=== PATIENT | male | born 1960 | race Caucasian/White ===

== ENCOUNTER 2016-12-03 09:06 | Inpatient (IN) | payer OTHER ==
--- NOTE | 2016-12-03 09:21 | PDOC ---
History of Present Illness <Yeimy Bateman - Last Filed: 12/03/16 09:21> <Amarjit Darnell - Last Filed: 12/03/16 11:14> - General History Source: Patient Exam Limitations: No Limitations - History of Present Illness Initial Comments: 12/03/16 09:48 Patient is a 56 year old male with a significant past medical history of GERD who presents to the ED with SOB, chest pressure, abdominal pain and jaundice. Patient reports chest pressure is localized to the right side of the chest and he feels like someone is sitting on my chest. Patient reports mild cough. Patient also notes that he has been experiencing RUQ pain and had a CT with contrast done in [place]. The CT showed large R pleural effusion, liver lesions, pancreas normal and gallbladder contracted but normal. Patient also had blood work done that showed elevated LFTs. He reports yellow-brown urine. He states that he had weight loss of 20 lbs over 5 weeks. He reports decreased PO. He denies fever, chills, nausea, vomiting, diarrhea or constipation. He denies any chest pain or leg swelling. PSH - Inguinal hernia repair 16 years ago SH - Smoker. Denies alcohol or drug use. Recent travel - [place] 2 weeks ago <Renee Anaya - Last Filed: 12/03/16 12:33> - General Chief Complaint: Chest Pain Stated Complaint: CHEST PAIN Time Seen by Provider: 12/03/16 09:21 Past History - Past Medical History GI Disorders: Yes (ACID REFLUX) - Surgical History Abdominal Surgery: Yes (HERNIA) - Psycho/Social/Smoking Cessation Hx Suicidal Ideation: No Smoking History: Current every day smoker Number of Cigarettes Smoked Daily: 6 Information on smoking cessation initiated: No Hx Alcohol Use: No Drug/Substance Use Hx: No <Yeimy Bateman - Last Filed: 12/03/16 09:21> <Amarjit Darnell - Last Filed: 12/03/16 11:14> <Renee Anaya - Last Filed: 12/03/16 12:33> - Past Medical History Allergies/Adverse Reactions: Allergies Allergy/AdvReac Type Severity Reaction Status Date / Time No Known Allergies Allergy Verified 12/03/16 09:16 Home Medications: Ambulatory Orders Bromezapam 6 mg PO PRN 12/03/16 Famotidine [Pepcid] 20 mg PO DAILY 12/03/16 Review of Systems - Review of Systems Constitutional: Yes: Chills, Fever, Unintentional Wgt. Loss HEENTM: No: Recent change in vision Respiratory: Yes: Cough, Shortness of Breath Cardiac (ROS): Yes: Chest Pain, Lightheadedness. No: Edema, Syncope ABD/GI: Yes: Nausea, Poor Appetite. No: Diarrhea All Other Systems: Reviewed and Negative <Amarjit Darnell - Last Filed: 12/03/16 11:14> - Review of Systems Able to Perform ROS?: Yes <Renee Anaya - Last Filed: 12/03/16 12:33> *Physical Exam - Vital Signs Last Vital Signs Temp Pulse Resp BP Pulse Ox 98.4 F 110 H 20 132/80 95 12/03/16 09:07 12/03/16 09:07 12/03/16 09:07 12/03/16 09:07 12/03/16 09:07 <Yeimy Bateman - Last Filed: 12/03/16 09:21> - Vital Signs Last Vital Signs Temp Pulse Resp BP Pulse Ox 98.4 F 110 H 20 132/80 95 12/03/16 09:07 12/03/16 09:07 12/03/16 09:07 12/03/16 09:07 12/03/16 09:07 <Amarjit Darnell - Last Filed: 12/03/16 11:14> - Vital Signs Last Vital Signs Temp Pulse Resp BP Pulse Ox 98.4 F 110 H 20 132/80 95 12/03/16 09:07 12/03/16 09:07 12/03/16 09:07 12/03/16 09:07 12/03/16 09:07 - Physical Exam Comments: 12/03/16 09:49 GENERAL: The patient is awake, alert, and fully oriented, in no acute distress. HEAD: Normal with no signs of trauma. EYES: Pupils equal, round and reactive to light, extraocular movements intact, sclera anicteric, conjunctiva clear with no pallor. ENT: + dry mucous membrance. Ears normal, nares patent, oropharynx clear without exudates. NECK: Normal range of motion, supple without lymphadenopathy, JVD, or masses. LUNGS: +Decreased breath sounds to the mid lung on the right. Clear to auscultation bilaterally. No wheeze/crackles. HEART: +Regular slight tachycardia, normal S1 and S2 without murmur or rub. ABDOMEN: +Hepatomegaly, +tenderness over epigastric and RUQ region.Soft/ nondistended. BS wnl. No guarding or rebound. No palpable masses. EXTREMITIES: + 1+ edema on the LLE, +trace edema on the RLE. Normal range of motion. No clubbing or cyanosis. No cords, erythema, or tenderness. NEUROLOGICAL: Cranial nerves II through XII grossly intact. Normal speech, normal gait. PSYCH: Normal mood, normal affect. SKIN: +Jaundice. Warm, Dry, normal turgor, no rashes or lesions noted. 12/03/16 12:32 <Renee Anaya - Last Filed: 12/03/16 12:33> Heart Score/ECG Review #1 ECG reviewed & interpreted by me at: 09:12 General ECG Interpretation: Sinus Rhythm, Normal Rate (104), Normal Intervals ( qtc 462), No acute ischemic changes (sub-mm JOHNNY isolated to V1, ST depression V5 -6) <Amarjit Darnell - Last Filed: 12/03/16 11:14> ED Treatment Course - LABORATORY CBC & Chemistry Diagram: 12/03/16 09:20 12/03/16 09:20 - ADDITIONAL ORDERS Additional order review: Laboratory Results 12/03/16 12/03/16 12/03/16 09:20 09:20 09:20 Sodium 129 L Potassium 3.8 Chloride 94 L Carbon Dioxide 22 Anion Gap 13 BUN 19 H Creatinine 0.6 L Creat Clearance w eGFR > 60 Random Glucose 117 H Lactic Acid 1.516 Calcium 8.9 Total Bilirubin 11.6 H AST 199 H ALT 206 H Alkaline Phosphatase 383 H Troponin I < 0.02 Total Protein 6.0 L Albumin 2.5 L Lipase 1438 H - RADIOLOGY Radiology Studies Ordered: Category Date Time Status ABDOMEN & PELVIS CT WITH CONTR [CT] Stat CT Scan 12/03/16 09:[address] WITH CONTRAST [CT] Stat CT Scan 12/03/16 09:41 Ordered - Medications Given in the ED: ED Medications Discontinued Medications Generic Name Dose Route Start Last Admin Trade Name Freq PRN Reason Stop Dose Admin Ondansetron HCl 4 mg 12/03/16 09:40 12/03/16 10:04 Zofran Injection IVPB 12/03/16 09:41 Not Given ONCE ONE <Amarjit Darnell - Last Filed: 12/03/16 11:14> - LABORATORY CBC & Chemistry Diagram: 12/03/16 09:20 12/03/16 09:20 - RADIOLOGY Radiology Studies Ordered: 12/03/16 11:24 EXAM: CT/CHEST CT WITH CONTRAST CT/ABDOMEN PELVIS CT WITH CONTR Clinical history: Right pleural effusion. Comparison: None. Contiguous transaxial images were obtained from the lung apices to the bases with windows obtained for mediastinal and lung parenchymal detail. IV contrast was utilized. Sagittal and coronal reconstructions were performed. Mediastinum: Suspicious moderately enlarged retrocaval pretracheal node measuring 2.9 cm in AP dimension x 2.0 cm in width. There are smaller nodes on the left adjacent to the aortic arch. There are enlarged right hilar nodes, including one measuring 1.2 cm. There is a traction loculated right effusion with pleural thickening. The fluid measures 9 Hounsfield units. Lungs: There are posterior right apical blebs and diffuse emphysematous changes. The left lung is clear. The right lung shows a spiculated lobulated mass probably in the anterior segment of the right middle lobe abutting the fissure. It measures 2.3 cm in width x 1.2 cm in AP dimension. There are pleural changes and small opacities in the right middle lobe. These probably are chronic as there are calcifications seen there. Bone: There is no specific evidence of skeletal metastatic disease, but if such is to be excluded, correlation with a radionuclide scan would be necessary. Impression: Spiculated anterior segment right upper lobe mass abutting the fissure with mediastinal and right hilar adenopathy. Loculated right effusion with pleural thickening. Clinical history: Abdominal pain. Rule out diverticulitis. Comparison: None. Contiguous transaxial images were obtained from the diaphragmatic domes and pubic symphysis after the administration of oral and IV contrast. There is mild ascites. Bone: Negative. Liver: Is moderate hepatomegaly with lipomatous infiltration. At least one hypodensity is seen in the right lobe on image #61 of series #6 which can be evaluated with an ultrasound. It measures 11 mm. Several other faint lucent lesions are seen within the liver. Gallbladder: Negative. Biliary tree: Negative. Spleen: Mild splenomegaly. Pancreas: Pancreatic head is enlarged and measures 5.1 x 4.5 cm. Please correlate with additional imaging. No noris adenopathy is identified. Adrenals: Negative. Kidneys: There are small bilateral renal cysts. Pelvis: Negative. Bowel: Retention of stool. Aorta: There is an infrarenal abdominal aortic aneurysm with mild clot measuring a maximum of 3.3 x 3.2 cm on image #96. The proximal iliac artery aneurysms, the right measuring 1 4 cm and the left 2.2 cm. Other: Negative. Impression: Mild ascites. Moderate hepatosplenomegaly with inhomogeneous hepatic enhancement and multiple hypodense lesions. Correlate with ultrasound. Enlarged pancreatic head. Correlate with ultrasound and MRI. Abdominal aortic aneurysm and proximal iliac artery aneurysms with thrombus but without seen. Small bilateral renal cysts. Reported By: Phillip Montenegro MD 12/03/16 <Renee Anaya - Last Filed: 12/03/16 12:33> Medical Decision Making - Medical Decision Making 12/03/16 10:18 A portion of this note was documented by scribe services under my direction. I have reviewed the details of the note, within reason, and agree with the documentation with the following case summary and management plan written by me. 56-year-old male with no significant past medical history other than GERD, long smoking history presents with 4-5 weeks complaints of generalized weakness, weight loss, shortness of breath, decreased appetite, intermittent chest pain. Patient had preliminary workup while in [place] with CAT scan notable for large right-sided pleural effusion and unspecified liver lesions concerning for metastatic disease. Presents to the ED for further evaluation with persistent generalized weakness. Vitals as noted, mild tachycardia. Jaundiced Decreased breath sounds on the right Right upper quadrant tenderness 56-year-old male with presentation most concerning for neoplastic process, in the setting of travel and possible neoplasm, some concern for superimposed PE. labs, ua ekg ct chest/abdomen/pelvis to evaluate effusion and jaundice IV fluid rehydration admission 12/03/16 11:14 No leukocytosis or anemia, positive thrombocytopenia. Hyponatremic, hypochloremic with normal creatinine. LFTs elevated, lipase elevated concerning for obstructive jaundice. CT of the chest/abdomen/pelvis is pending. Receiving IV fluid hydration. Accepted for inpatient med/surge by Dr. Rhodes <Amarjit Darnell - Last Filed: 12/03/16 11:14> *DC/Admit/Observation/Transfer <Yeimy Bateman - Last Filed: 12/03/16 09:21> - Discharge Dispostion Admit: Yes <Amarjit Darnell - Last Filed: 12/03/16 11:14> - Attestations Scribe Attestion: 12/03/16 09:53 Documentation prepared by YANELY Espinoza, acting as medical language specialist for Amarjit Darnell MD. <Renee Anaya - Last Filed: 12/03/16 12:33> Diagnosis at time of Disposition: Jaundice, Pleural effusion on right, Elevated LFTs
[2016-12-03] MEDS ORDERED: ONDANSETRON 4 MG/2 ML VIAL IVPB ONE (09:40)
[2016-12-03] MEDS ORDERED: SODIUM CHLORIDE 1,000 ML IV ONE (09:40)
[2016-12-03] MEDS ORDERED: ONDANSETRON 4 MG/2 ML VIAL ONE (09:50)
[2016-12-03 10:05] LABS: MCH 29.5 pg (25.7-33.7); MCHC 34.4 g/dl (32.0-35.9); MEAN CELL VOLUME 85.8 fl (80-96); MEAN PLT VOLUME 7.3 fl (7.5-11.1); WHITE BLOOD COUNT 9.4 K/mm3 (4.0-10.0)
[2016-12-03 10:07] LABS: ALBUMIN 2.5 g/dl (3.4-5.0); ANION GAP 13 (8-16); CALCIUM 8.9 mg/dL (8.5-10.1); CO2 22 mmol/L (21-32); GLUCOSE,RANDOM 117 mg/dL (74-106)
[2016-12-03 10:10] LABS: ALK PHOS 383 U/L (45-117); BILIRUBIN,TOTAL 11.6 mg/dL (0.2-1.0); CREATININE 0.6 mg/dL (0.7-1.3); SGPT/ALT 206 U/L (12-78)
[2016-12-03 10:11] LABS: TROPONIN I < 0.02 ng/ml (0.00-0.05)
[2016-12-03 10:14] LABS: SGOT/AST 199 U/L (15-37)
[2016-12-03 10:16] LABS: BILIRUBIN,DIRECT 8.2 mg/dL (0.0-0.2); MAGNESIUM 2.1 mg/dL (1.8-2.4)
[2016-12-03 10:18] LABS: PLATELET COUNT 36 K/MM3 (134-434)
[2016-12-03 10:39] LABS: INR 1.3 (0.82-1.09); PROTHROMBIN TIME (PATIENT) 14.4 SEC (9.98-11.88)
[2016-12-03 12:02] LABS: PH,URINE 7.5 (5.0-8.0); URINE APPEARANCE CLEAR; URINE BILIRUBIN 3+ (NEGATIVE); URINE BLOOD NEGATIVE (NEGATIVE); URINE COLOR DK. ORANGE; URINE GLUCOSE (UA) TRACE (NEGATIVE); URINE KETONE NEGATIVE (NEGATIVE); URINE LEUK ESTERASE NEGATIVE (NEGATIVE); URINE NITRITE NEGATIVE (NEGATIVE); URINE UROBILINOGEN 1.0 E.U/dl E.U./dl (0.2-1.0)
[2016-12-03 12:03] LABS: URINE PROTEIN 1+ (NEGATIVE)
[2016-12-03 12:07] LABS: URINE RBC 3 /hpf (0-3)
[2016-12-03 12:19] VITALS: BMI 28.4
[2016-12-03 12:41] LABS: PLATELET ESTIMATE MARKEDLY DECREASED (NORMAL)
--- NOTE | 2016-12-03 13:27 | EKG ---
Test Reason : Blood Pressure : / mmHG Vent. Rate : 104 BPM Atrial Rate : 104 BPM P-R Int : 128 ms QRS Dur : 094 ms QT Int : 352 ms P-R-T Axes : 050 053 043 degrees QTc Int : 462 ms SINUS TACHYCARDIA NONSPECIFIC ST ABNORMALITY ABNORMAL ECG NO PREVIOUS ECGS AVAILABLE Confirmed by MARICARMEN ANDERSON, LENA ([id number]) on 12/03/2016 1:27:40 PM Referred By: Confirmed By:LENA HERNADEZ MD
--- NOTE | 2016-12-03 15:39 | CONSULT ---
Consult - text type - Consultation Consultation Note: Patient is a 56 year old male with a significant past medical history of GERD who presents to the ED with SOB, chest pressure, abdominal pain and jaundice. Patient reports chest pressure is localized to the right side of the chest . Patient reports mild cough. Patient also notes that he has been experiencing RUQ pain and had a CT with contrast done in [place]. The CT showed large R pleural effusion, liver lesions, pancreas normal and gallbladder contracted but normal. Patient also had blood work done that showed elevated LFTs. He states that he had weight loss of 20 lbs over 5 weeks. He denies fever, chills, nausea, vomiting, diarrhea or constipation. He denies any chest pain or leg swelling. PSH - Inguinal hernia repair 16 years ago SH - Smoker. Denies alcohol or drug use. - Past Medical History GI Disorders: Yes (ACID REFLUX) - Surgical History Abdominal Surgery: Yes (HERNIA) - Psycho/Social/Smoking Cessation Hx Smoking History: Current every day smoker - Past Medical History Allergies/Adverse Reactions: Allergies Allergy/AdvReac Type Severity Reaction Status Date / Time No Known Allergies Allergy Verified 12/03/16 09:16 Home Medications: Bromezapam 6 mg PO PRN 12/03/16 Famotidine [Pepcid] 20 mg PO DAILY 12/03/16 Family h/o mother had hodgkins disease Last Vital Signs Temp Pulse Resp BP Pulse Ox 98.7 F 102 H 18 127/82 96 12/03/16 13:06 12/03/16 13:06 12/03/16 13:06 12/03/16 13:06 12/03/16 13:06 GENERAL: The patient is awake, alert, and fully oriented, in no acute distress. LUNGS: +Decreased breath sounds on the right. No wheeze/crackles. HEART: +Regular slight tachycardia, normal S1 and S2 without murmur or rub. ABDOMEN: +Hepatomegaly, +tenderness over epigastric and RUQ region.Soft/ nondistended. BS wnl. No guarding or rebound. No palpable masses. EXTREMITIES: + 1+ edema on the LLE, +trace edema on the RLE. Normal range of motion. Abnormal Lab Results 12/03/16 12/03/16 12/03/16 09:20 09:20 09:20 Plt Count MPV Nucleated RBCs INR 1.30 H Sodium Chloride BUN Creatinine Random Glucose Total Bilirubin Direct Bilirubin 8.2 H AST ALT Alkaline Phosphatase Creatine Kinase 320 H Total Protein Albumin Lipase Urine Protein 1+ H Urine Glucose (UA) Trace H Urine Bilirubin 3+ H 12/03/16 12/03/16 09:20 09:20 Plt Count 36 L* MPV 7.3 L Nucleated RBCs 7 H INR Sodium 129 L Chloride 94 L BUN 19 H Creatinine 0.6 L Random Glucose 117 H Total Bilirubin 11.6 H Direct Bilirubin AST 199 H ALT 206 H Alkaline Phosphatase 383 H Creatine Kinase Total Protein 6.0 L Albumin 2.5 L Lipase 1438 H Urine Protein Urine Glucose (UA) Urine Bilirubin Meds reviewed A/P 56-year-old male with no significant past medical history other than GERD, long smoking history presents with 4-5 weeks complaints of generalized weakness, weight loss, shortness of breath, decreased appetite, intermittent chest pain. CAT scans -- RML lung mass, loculated rt. pleural effusion, hilar/mediastinal adenopathy, retrocrural and paraaortic adenopathy, liver lesions, splenomegaly, prominent pancreatic head, clot in infrarenal aneurysm Tbili 11, platelets [id number] will check cultures/tumor markers GI consult coagulopathy/thrombocytopenia---due o liver disease? check cultures trial of vit. K may need FFP/platelets prior to biopsy morphine prn for pain
[2016-12-03] MEDS ORDERED: morphine CARPU-JECT 2 MG/1 ML DISP.SYRIN IVPUSH PRN (16:47)
--- NOTE | 2016-12-03 17:33 | CON.GI ---
Consult Consult Specialty:: GI Referred by:: Dr. Rhodes Reason for Consultation:: Abnormal liver chemistries - History of Present Illness Chief Complaint: Abnormal liver chemistries History of Present Illness: 56M admitted [facility] for eval of abnormal liver chemistires. He was living in [place] when he noticed a significant weight loss of 15 pounds over the last 1 -2 months and noted a yellow discoloration in his eyes and skin about a month ago. he described being evaluated there, having blood work that revealed abnormal liver chemistries and had a CT scan revealing lesions in his liver. [place] came [place] the [place] to visit his son and sought further evaluation. CT scan revealed a lung lesion, lesions in his liver, enlarged spleen. Abdominal; US revealed multiple liver lesions, the largest 1.2 cm along with ? sludge or GB mass. The US failed to reveal biliary tract dilatation. He says that he was tested for hepatitis in [place] and it was negative. - History Source History Provided By: Patient Limitations to Obtaining History: No Limitations - Past Medical History Additional Medical History: Denies - Past Surgical History Past Surgical History: Yes: Hernia Repair (inguinal) - Alcohol/Substance Use Hx Alcohol Use: No History of Substance Use: reports: None - Smoking History Smoking history: Current every day smoker Aproximately how many cigarettes per day: 6 - Social History Usual Living Arrangement: With Spouse ADL: Independent Place of : Other ([place]) History of Recent Travel: Yes (Arrived from [place] recently) Home Medications - Allergies Allergies/Adverse Reactions: Allergies Allergy/AdvReac Type Severity Reaction Status Date / Time No Known Allergies Allergy Verified 12/03/16 09:16 - Home Medications Home Medications: Ambulatory Orders Bromezapam 6 mg PO PRN 12/03/16 Famotidine [Pepcid] 20 mg PO DAILY 12/03/16 Family Disease History - Family Disease History Other Family History: Mother had hodgkin's lymphoma Review of Systems - Review of Systems Constitutional: reports: Unintentional Wgt. Loss. denies: Fever Cardiovascular: denies: Chest Pain Respiratory: denies: SOB Gastrointestinal: reports: Abdominal Pain. denies: Constipation, Diarrhea, Melena, Rectal Bleeding, Vomiting Physical Exam-GI Vital Signs: Vital Signs Temperature 98.7 F 12/03/16 13:06 Pulse Rate 102 H 12/03/16 13:06 Respiratory Rate 18 12/03/16 13:06 Blood Pressure 127/82 12/03/16 13:06 O2 Sat by Pulse Oximetry (%) 95 12/03/16 13:20 Constitutional: Yes: Calm Eyes: Yes: Sclera Icterus Cardiovascular: Yes: Regular Rate and Rhythm. No: Murmur Respiratory: Yes: CTA Bilaterally Gastrointestinal Inspection: No: Distention, Scars ...Auscultate: Yes: Normoactive Bowel Sounds ...Palpate: Yes: Hepatomegaly Edema: Yes (trace LE edema b/l) Neurological: Yes: Alert, Oriented Labs: INR, PTT INR 1.30 (0.82-1.09) H 12/03/16 09:20 CBC, BMP 12/03/16 09:20 12/03/16 09:20 Hepatic Panel Total Bilirubin 11.6 mg/dL (0.2-1.0) H 12/03/16 09:20 Direct Bilirubin 8.2 mg/dL (0.0-0.2) H 12/03/16 09:20 AST 199 U/L (15-37) H 12/03/16 09:20 ALT 206 U/L (12-78) H 12/03/16 09:20 Alkaline Phosphatase 383 U/L (45-117) H 12/03/16 09:20 Albumin 2.5 g/dl (3.4-5.0) L 12/03/16 09:20 Imaging - Results Cat Scan: Report Reviewed, Image Reviewed Ultrasound: Report Reviewed Problem List - Problems (1) Jaundice Assessment/Plan: Liver decompensation: suspect to be secondary to metastatic liver disease / tumor burden as opposed to biliary obstruction and unclear if her had preexisting liver disease prior to this Oncology is following. Tumor markers ordered and liver biopsy being contemplated I ordered Triple Phase MRI of the abdomen with MRCP to further evaluate liver and biliary tract Ordered Hepatitis A/B/C serologies Lactulose 20g daily Family present: the patient and his family are aware that he likely has cancer and of likely poor outcome Code(s): R17 - UNSPECIFIED JAUNDICE
[2016-12-03] MEDS: PHYTONADIONE 10 MG/1 ML AMP SQ SCH (17:57)
--- NOTE | 2016-12-03 19:06 | HP ---
Admitting History and Physical - Primary Care Physician PCP: Savita Rhodes - Admission Chief Complaint: jaundice and shortness of breath History of Present Illness: Pt is a 56 year old male with pmhx of GERD who presents to the ER with abnormal liver function tests and Jaundice. He has had about 15 pound weight loss over the last few months. He has notices a yellow discoloration of his urine and skin. He also complained of change in taste. He has had increasing shortness of breath. He also has abdominal pain that is localized mostly to the epigastric area and to the RUQ. He went to see a physician in [place] which is when he had the bloodwork and a ct scan. He is aware of the lesions in the liver that appear metastatic. He is also aware of the abnormal liver function tests. He does have a smoking history and family history of cancer. He currently does have shortness of breath that is improved with oxygen. He does have a right pleural effusion and was told that it may need to be drained. He has never had a colonoscopy. History Source: Patient, Medical Record - Past Medical History Gastrointestinal: Yes: GERD - Past Surgical History Past Surgical History: Yes: Hernia Repair (inguinal) - Smoking History Smoking history: Current every day smoker Aproximately how many cigarettes per day: 6 - Alcohol/Substance Use Hx Alcohol Use: No History of Substance Use: reports: None - Social History ADL: Independent History of Recent Travel: Yes (Arrived from [place] recently) Home Medications - Allergies Allergies/Adverse Reactions: Allergies Allergy/AdvReac Type Severity Reaction Status Date / Time No Known Allergies Allergy Verified 12/03/16 09:16 - Home Medications Home Medications: Ambulatory Orders Bromezapam 6 mg PO PRN 12/03/16 Famotidine [Pepcid] 20 mg PO DAILY 12/03/16 Family Disease History - Family Disease History Other Family History: Mother had hodgkin's lymphoma Review of Systems - Review of Systems Constitutional: reports: Loss of Appetite, Malaise, Unintentional Wgt. Loss, Weakness. denies: Night Sweats Eyes: reports: Other (scleral icterus) HENT: reports: No Symptoms Neck: reports: No Symptoms Cardiovascular: reports: Shortness of Breath Respiratory: reports: Cough, Exercise Intolerance, SOB, SOB on Exertion Gastrointestinal: reports: Abdominal Pain Genitourinary: reports: No Symptoms Musculoskeletal: reports: No Symptoms Integumentary: reports: Other (jaundice) Neurological: reports: No Symptoms Endocrine: reports: No Symptoms Hematology/Lymphatic: reports: No Symptoms Psychiatric: reports: No Symptoms Physical Examination Vital Signs: Vital Signs Temperature 98.7 F 12/03/16 13:06 Pulse Rate 102 H 12/03/16 13:06 Respiratory Rate 18 12/03/16 13:06 Blood Pressure 127/82 12/03/16 13:06 O2 Sat by Pulse Oximetry (%) 95 12/03/16 13:20 Constitutional: Yes: Calm Eyes: Yes: Sclera Icterus HENT: Yes: Atraumatic Neck: Yes: Supple Cardiovascular: Yes: Tachycardia, S1, S2 Respiratory: Yes: On Nasal O2, Other (decreased right lung sounds) Gastrointestinal: Yes: Tenderness, Tenderness, Epigastrium Renal/: Yes: WNL Musculoskeletal: Yes: WNL Edema: Yes Edema: LLE: Trace, RLE: Trace Integumentary: Yes: Jaundice Neurological: Yes: Oriented Psychiatric: Yes: Oriented Labs: Laboratory Tests 12/03/16 12/03/16 12/03/16 09:00 09:20 09:20 WBC Hgb Plt Count INR 1.30 H Sodium Potassium Chloride Carbon Dioxide Anion Gap BUN Creatinine Creat Clearance w eGFR Random Glucose Total Bilirubin Direct Bilirubin AST ALT Alkaline Phosphatase Creatine Kinase Creatine Kinase Index Total Protein Lipase Urine Color Dk. orange Urine Appearance Clear Urine pH 7.5 Ur Specific [place] <= 1.005 Urine Protein 1+ H Urine Ketones Negative Urine Blood Negative Urine Nitrite Negative Urine Bilirubin 3+ H Urine Urobilinogen 1.0 e.u/dl Ur Leukocyte Esterase Negative Urine RBC 3 Urine WBC None Hepatitis C Antibody Pending 12/03/16 12/03/16 12/03/16 09:20 09:20 09:20 WBC 9.4 Hgb 12.8 Plt Count 36 L* INR Sodium 129 L Potassium 3.8 Chloride 94 L Carbon Dioxide 22 Anion Gap 13 BUN 19 H Creatinine 0.6 L Creat Clearance w eGFR > 60 Random Glucose 117 H Total Bilirubin 11.6 H Direct Bilirubin 8.2 H AST 199 H ALT 206 H Alkaline Phosphatase 383 H Creatine Kinase 320 H Creatine Kinase Index 0.5 Total Protein 6.0 L Lipase 1438 H Urine Color Urine Appearance Urine pH Ur Specific [place] Urine Protein Urine Ketones Urine Blood Urine Nitrite Urine Bilirubin Urine Urobilinogen Ur Leukocyte Esterase Urine RBC Urine WBC Hepatitis C Antibody Imaging - Results Cat Scan: Report Reviewed (right upper lobe lung mass, right lung pleural effusion. hepatosplenomegaly. enlarged pancreatic head) Problem List - Problems (1) Elevated LFTs Code(s): R94.5 - ABNORMAL RESULTS OF LIVER FUNCTION STUDIES (2) Jaundice Code(s): R17 - UNSPECIFIED JAUNDICE (3) Pleural effusion on right Code(s): J90 - PLEURAL EFFUSION, NOT ELSEWHERE CLASSIFIED (4) GERD (gastroesophageal reflux disease) Code(s): K21.9 - GASTRO-ESOPHAGEAL REFLUX DISEASE WITHOUT ESOPHAGITIS (5) Ascites Code(s): R18.8 - OTHER ASCITES (6) Hyponatremia Code(s): E87.1 - HYPO-OSMOLALITY AND HYPONATREMIA (7) Thrombocytopenia Code(s): D69.6 - THROMBOCYTOPENIA, UNSPECIFIED (8) Smoker Code(s): F17.200 - NICOTINE DEPENDENCE, UNSPECIFIED, UNCOMPLICATED Assessment/Plan Current Medications Generic Name Dose Route Start Last Admin Trade Name Freq PRN Reason Stop Dose Admin Morphine Sulfate 0.5 mg 12/03/16 16:47 12/03/16 17:21 Morphine Injection - IVPUSH 0.5 mg Q6H PRN Administration PAIN Phytonadione 5 mg 12/03/16 17:15 12/03/16 17:57 Aqua Mephyton Injection - SQ 12/05/16 10:01 5 mg DAILY NIK Administration Impression 1. right lung mass 2. liver lesions 3. hepatosplenomegaly 4. transaminitis 5. jaundice 6. GERD 7. smoking history 8. abdominal aortic aneurysm 9. thrombocytopenia 10. hyponatremia 11. unintentional weight loss 12. mild ascites Plan - admit to hospital - pain control - oxygen via [place], monitor pulse ox - oncology evaluation for lesions - GI evaluation - will check hep panel - hold fluids for now - repeat labs in am - will send urine lytes - pt likely has a malignancy, will proceed with workup to find the primary lesion - case discussed in detail with family and with patient - ultrasound reviewed, MRI to be done Dr Rhodes
[2016-12-03] MEDS ORDERED: LACTULOSE 20 GM/30 ML UDC (FOR ORAL USE ONLY) PO PRN (19:19)
[2016-12-03] MEDS ORDERED: morphine CARPU-JECT 2 MG/1 ML DISP.SYRIN IVPUSH ONE (19:30)
[2016-12-03] MEDS ORDERED: PT OWN MED DRAWER 7, Y5N ONE (21:54)
[2016-12-04] MEDS: morphine CARPU-JECT 2 MG/1 ML DISP.SYRIN IVPUSH PRN ×6 (00:24→23:09)
[2016-12-04 07:58] LABS: MCHC 35.1 g/dl (32.0-35.9); MEAN CELL VOLUME 85.5 fl (80-96); MEAN PLT VOLUME 7.7 fl (7.5-11.1); RDW 15.8 % (11.9-15.9); WHITE BLOOD COUNT 9.7 K/mm3 (4.0-10.0)
[2016-12-04 08:24] LABS: INR 1.3 (0.82-1.09); PROTHROMBIN TIME (PATIENT) 14.4 SEC (9.98-11.88)
[2016-12-04 08:26] LABS: PLATELET COUNT 28 K/MM3 (134-434)
[2016-12-04 08:27] LABS: ACTIVATED PTT 29.1 SECONDS (26.9-34.4)
[2016-12-04 08:31] LABS: ALBUMIN 2.3 g/dl (3.4-5.0); ANION GAP 11 (8-16); BILIRUBIN,TOTAL 13.3 mg/dL (0.2-1.0); CALCIUM 8.6 mg/dL (8.5-10.1); CO2 27 mmol/L (21-32); CREATININE 0.6 mg/dL (0.7-1.3); GLUCOSE,RANDOM 117 mg/dL (74-106); SGPT/ALT 204 U/L (12-78); TOT PROT 5.6 g/dl (6.4-8.2)
[2016-12-04 08:41] LABS: ALK PHOS 379 U/L (45-117); THYROID STIMULATING HORMONE 0.83 uIU/ml (0.358-3.74)
[2016-12-04 08:48] LABS: SGOT/AST 219 U/L (15-37)
[2016-12-04 08:58] LABS: MAGNESIUM 2.2 mg/dL (1.8-2.4)
[2016-12-04 10:13] LABS: MCH 29.8 pg (25.7-33.7); MCHC 35.1 g/dl (32.0-35.9); PLATELET COUNT 63 K/MM3 (134-434); RDW 15.1 % (11.9-15.9); WHITE BLOOD COUNT 9.9 K/mm3 (4.0-10.0)
[2016-12-04 10:41] LABS: METAMYELOCYTE 1 % (0-2)
[2016-12-04 10:48] LABS: INR 1.28 (0.82-1.09); PROTHROMBIN TIME (PATIENT) 14.2 SEC (9.98-11.88)
[2016-12-04] MEDS: PHYTONADIONE 10 MG/1 ML AMP SQ SCH (10:57)
--- NOTE | 2016-12-04 12:28 | CON.PULM ---
Consult Consult Specialty:: PULM/CCM Referred by:: MISSY Reason for Consultation:: Abnormal CT chest - History of Present Illness Chief Complaint: SOB and CP History of Present Illness: 56 M, with listed medical illness. Reports a 2 to 3 week illness that started in [place]. Patient had scans performed in [place] that revealed liver lesions. Imaging here reveals a RML spiculated mass abutting the fissure with associated mediastinal lymh nodes and a loculated right effusion. Patient denies sick contacts or recent febrile illness. Denies hemoptysis. (+) smoker - History Source History Provided By: Patient Limitations to Obtaining History: Poor Historian - Past Medical History Gastrointestinal: Yes: GERD Additional Medical History: Denies - Past Surgical History Past Surgical History: Yes: Hernia Repair (inguinal) - Alcohol/Substance Use Hx Alcohol Use: No History of Substance Use: reports: None - Smoking History Smoking history: Current every day smoker Aproximately how many cigarettes per day: 6 - Social History Usual Living Arrangement: With Spouse ADL: Independent History of Recent Travel: Yes (Arrived from [place] recently) Home Medications - Allergies Allergies/Adverse Reactions: Allergies Allergy/AdvReac Type Severity Reaction Status Date / Time No Known Allergies Allergy Verified 12/03/16 09:16 - Home Medications Home Medications: Ambulatory Orders Bromezapam 6 mg PO PRN 12/03/16 Famotidine [Pepcid] 20 mg PO DAILY 12/03/16 Family Disease History - Family Disease History Other Family History: Mother had hodgkin's lymphoma Review of Systems - Review of Systems Constitutional: reports: Lethargy, Loss of Appetite, Malaise, Unintentional Wgt. Loss, Weakness. denies: Chills, Fever, Night Sweats Eyes: reports: Other (yellow discoloration) HENT: reports: No Symptoms Neck: reports: No Symptoms Cardiovascular: reports: Chest Pain, Edema, Shortness of Breath. denies: Palpitations Respiratory: reports: Cough, SOB, SOB on Exertion. denies: Hemoptysis, Wheezing Gastrointestinal: reports: Bloating. denies: Melena, Rectal Bleeding, Vomiting Blood Genitourinary: reports: No Symptoms Breasts: reports: No Symptoms Reported Musculoskeletal: reports: Back Pain Integumentary: reports: Change in Color Neurological: reports: No Symptoms Endocrine: reports: No Symptoms Hematology/Lymphatic: denies: Easily Bruised, Excessive Bleeding Psychiatric: reports: No Symptoms Physical Exam Vital Sings: Vital Signs Temperature 97.9 F 12/04/16 09:21 Pulse Rate 101 H 12/04/16 09:21 Respiratory Rate 18 12/04/16 09:21 Blood Pressure 125/81 12/04/16 09:21 O2 Sat by Pulse Oximetry (%) 95 12/03/16 22:00 Constitutional: Yes: No Distress, Pallor, Other (Icterus) Eyes: Yes: Sclera Icterus HENT: Yes: Atraumatic, Normocephalic Neck: Yes: Supple, Trachea Midline Cardiovascular: Yes: Regular Rate and Rhythm Respiratory: Yes: Cough, Diminished, Dullness, On Nasal O2, Rhonchi, Tachypnea. No: Accessory Muscle Use, Stridor, Wheezes ...Inspection: Yes: WNL ...Clubbing: No Gastrointestinal: Yes: Normal Bowel Sounds, Soft Renal/: Yes: WNL Musculoskeletal: Yes: WNL Extremities: Yes: WNL Edema: Yes Peripheral Pulses WNL: Yes Integumentary: Yes: Jaundice Neurological: Yes: Alert, Oriented Psychiatric: Yes: Alert, Oriented Labs: CBC, BMP 12/04/16 10:05 12/04/16 06:30 Imaging - Results Cat Scan: Report Reviewed, Image Reviewed Problem List - Problems (1) Ascites Code(s): R18.8 - OTHER ASCITES (2) Elevated LFTs Code(s): R94.5 - ABNORMAL RESULTS OF LIVER FUNCTION STUDIES (3) GERD (gastroesophageal reflux disease) Code(s): K21.9 - GASTRO-ESOPHAGEAL REFLUX DISEASE WITHOUT ESOPHAGITIS (4) Hyponatremia Code(s): E87.1 - HYPO-OSMOLALITY AND HYPONATREMIA (5) Jaundice Code(s): R17 - UNSPECIFIED JAUNDICE (6) Pleural effusion on right Code(s): J90 - PLEURAL EFFUSION, NOT ELSEWHERE CLASSIFIED (7) Smoker Code(s): F17.200 - NICOTINE DEPENDENCE, UNSPECIFIED, UNCOMPLICATED (8) Thrombocytopenia Code(s): D69.6 - THROMBOCYTOPENIA, UNSPECIFIED (9) Mass of right lung Code(s): R91.8 - OTHER NONSPECIFIC ABNORMAL FINDING OF LUNG FIELD Assessment/Plan Heme evaluation noted for transfusional support prior to IR guided biopsy/ pleural drainage O2 as needed Follow cultures Do not suspect infection-> Monitor off ABX for now Lactulose No smoking Unfortunately appears like metastatic CA Will follow Thank you. Dr Gates
[2016-12-04 13:06] LABS: MCH 29.3 pg (25.7-33.7); MCHC 34.3 g/dl (32.0-35.9); MEAN CELL VOLUME 85.4 fl (80-96); PLATELET COUNT 88 K/MM3 (134-434); RDW 15.2 % (11.9-15.9); WHITE BLOOD COUNT 11.1 K/mm3 (4.0-10.0)
[2016-12-04] MEDS ORDERED: morphine CARPU-JECT 2 MG/1 ML DISP.SYRIN IVPUSH ONE (14:00)
--- NOTE | 2016-12-04 14:11 | PN ---
Progress Note (short form) - Note Progress Note: Patient seen and examined c/o pain restless had biopsy done today Last Vital Signs Temp Pulse Resp BP Pulse Ox 97.9 F 101 H 18 125/81 95 12/04/16 09:21 12/04/16 09:21 12/04/16 09:21 12/04/16 09:21 12/03/16 22:00 Jaundiced Cor: RSR, No murmurs, No gallops Lungs: Clear to P&A Abd: Soft, Normal bowel sounds, No organomegaly Ext:No significant edema Abnormal Lab Results 12/04/16 12/04/16 12/04/16 06:30 06:30 06:30 WBC RBC Hgb Hct 35.0 L Plt Count 28 L* D MPV INR 1.30 H Sodium 132 L Chloride 94 L Creatinine 0.6 L Random Glucose 117 H Serum Osmolality Total Bilirubin 13.3 H GGT 2079 H AST 219 H ALT 204 H Alkaline Phosphatase 379 H Total Protein 5.6 L Albumin 2.3 L 12/04/16 12/04/16 12/04/16 06:30 10:05 10:05 WBC RBC 3.89 L Hgb 11.6 L Hct 33.1 L Plt Count 63 L D MPV 7.0 L INR 1.28 H Sodium Chloride Creatinine Random Glucose Serum Osmolality 269 L Total Bilirubin GGT AST ALT Alkaline Phosphatase Total Protein Albumin 12/04/16 12:50 WBC 11.1 H RBC 3.97 L Hgb 11.6 L Hct 33.9 L Plt Count 88 L D MPV 7.0 L INR Sodium Chloride Creatinine Random Glucose Serum Osmolality Total Bilirubin GGT AST ALT Alkaline Phosphatase Total Protein Albumin Active Medications Generic Name Dose Route Start Last Admin Trade Name Freq PRN Reason Stop Dose Admin Lactulose 20 gm 12/03/16 19:19 Cephulac (Oral Use) PO DAILY PRN CONSTIPATION Morphine Sulfate 2 mg 12/04/16 09:15 12/04/16 11:39 Morphine Injection - IVPUSH 2 mg Q3H PRN Administration PAIN Morphine Sulfate 0.5 mg 12/04/16 14:00 Morphine Injection - IVPUSH ONCE NIK Phytonadione 5 mg 12/03/16 17:15 12/04/16 10:57 Aqua Mephyton Injection - SQ 12/05/16 10:01 5 mg DAILY NIK Administration A/P 56 y/o patient with presumed metastatic cancer ? pancreas ? lung for biopsy today was given 4 units monodonor platelets perioperatively repeat CBC at 7 pm discussed with IR, Dr. Rhodes and family at bed side pain meds,xanax poor performance status
[2016-12-04 14:37] LABS: METAMYELOCYTE 1 % (0-2)
[2016-12-04] MEDS ORDERED: SODIUM CHLORIDE 500 ML IV SCH (14:40)
--- NOTE | 2016-12-04 15:09 | PN ---
Progress Note, Physician History of Present Illness: Pt seen and examined at bedside. He is awake and able to converse. He had generalized pain last night and morphine dose was increased. - Current Medication List Current Medications: Active Medications Lactulose (Cephulac (Oral Use)) 20 gm PO DAILY PRN PRN Reason: CONSTIPATION Morphine Sulfate (Morphine Injection -) 2 mg IVPUSH Q3H PRN PRN Reason: PAIN Last Admin: 12/04/16 11:39 Dose: 2 mg Phytonadione (Aqua Mephyton Injection -) 5 mg SQ DAILY NIK Stop: 12/05/16 10:01 Last Admin: 12/04/16 10:57 Dose: 5 mg - Objective Vital Signs: Vital Signs Temperature 96.8 F L 12/04/16 14:49 Pulse Rate 112 H 12/04/16 14:49 Respiratory Rate 18 12/04/16 14:49 Blood Pressure 138/81 12/04/16 14:49 O2 Sat by Pulse Oximetry (%) 95 12/03/16 22:00 Constitutional: Yes: Calm Eyes: Yes: Sclera Icterus Neck: Yes: Supple Cardiovascular: Yes: S1, S2 Respiratory: Yes: On Nasal O2, Other (decrease right lung sounds) Gastrointestinal: Yes: Tenderness, Epigastrium Genitourinary: Yes: WNL Musculoskeletal: Yes: Muscle Weakness Edema: Yes Edema: LLE: Trace, RLE: Trace Integumentary: Yes: Jaundice Neurological: Yes: Oriented Psychiatric: Yes: Oriented Labs: CBC, BMP 12/04/16 12:50 12/04/16 06:30 INR, PTT INR 1.28 (0.82-1.09) H 12/04/16 10:05 Fibrinogen 392.0 mg/dL (238-498) 12/04/16 06:30 - ....Imaging Ultrasound: Report Reviewed Problem List - Problems (1) Elevated LFTs Code(s): R94.5 - ABNORMAL RESULTS OF LIVER FUNCTION STUDIES (2) Jaundice Code(s): R17 - UNSPECIFIED JAUNDICE (3) Pleural effusion on right Code(s): J90 - PLEURAL EFFUSION, NOT ELSEWHERE CLASSIFIED (4) GERD (gastroesophageal reflux disease) Code(s): K21.9 - GASTRO-ESOPHAGEAL REFLUX DISEASE WITHOUT ESOPHAGITIS (5) Ascites Code(s): R18.8 - OTHER ASCITES (6) Hyponatremia Code(s): E87.1 - HYPO-OSMOLALITY AND HYPONATREMIA (7) Thrombocytopenia Code(s): D69.6 - THROMBOCYTOPENIA, UNSPECIFIED (8) Smoker Code(s): F17.200 - NICOTINE DEPENDENCE, UNSPECIFIED, UNCOMPLICATED Assessment/Plan Current Medications Generic Name Dose Route Start Last Admin Trade Name Freq PRN Reason Stop Dose Admin Lactulose 20 gm 12/03/16 19:19 Cephulac (Oral Use) PO DAILY PRN CONSTIPATION Morphine Sulfate 2 mg 12/04/16 09:15 12/04/16 11:39 Morphine Injection - IVPUSH 2 mg Q3H PRN Administration PAIN Phytonadione 5 mg 12/03/16 17:15 12/04/16 10:57 Aqua Mephyton Injection - SQ 12/05/16 10:01 5 mg DAILY NIK Administration Laboratory Tests 12/04/16 12/04/16 12/04/16 06:30 06:30 06:30 Total Bilirubin 13.3 H GGT 2079 H AST 219 H ALT 204 H Alkaline Phosphatase 379 H Tumor Marker AFP Pending Carcinoembryonic Ag Pending CA 19-9 Antigen Pending Hepatitis A Ab Total Hep Bs Antigen Hep Bs Antibody Hep B Core Total Ab Hepatitis C Antibody 12/04/16 06:30 Total Bilirubin GGT AST ALT Alkaline Phosphatase Tumor Marker AFP Carcinoembryonic Ag CA 19-9 Antigen Hepatitis A Ab Total Pending Hep Bs Antigen Pending Hep Bs Antibody Pending Hep B Core Total Ab Pending Hepatitis C Antibody Pending Impression 1. right lung mass 2. liver lesions 3. hepatosplenomegaly 4. transaminitis 5. jaundice 6. GERD 7. smoking history 8. abdominal aortic aneurysm 9. thrombocytopenia 10. hyponatremia 11. unintentional weight loss 12. mild ascites Plan - cont with platelet transfusions. Will monitor platelets - pt going for IR guided biopsy - discussed with oncology, likely metastatic disease - bilirubin is rising - workup is in progress - will follow MRI results - discussed with patients family - will need tissue for diagnosis Dr Rhodes
[2016-12-04] MEDS ORDERED: morphine CARPU-JECT 4 MG/1 ML DISP.SYRIN IVPUSH ONE (15:28)
[2016-12-04] MEDS ORDERED: ALPRAZolam 0.25 MG TABLET PO ONE ×2 (15:44→15:51)
--- NOTE | 2016-12-04 16:55 | PN ---
Physical Exam: SUBJECTIVE: Patient seen and examined History obtain from previous notes Pt is a 56 year old male with pmhx of GERD who presents to the ER with abnormal liver function tests and Jaundice. He has had about 15 pound weight loss over the last few months. He has notices a yellow discoloration of his urine and skin. He also complained of change in taste. He has had increasing shortness of breath. He also has abdominal pain that is localized mostly to the epigastric area and to the RUQ. He went to see a physician in [place] which is when he had the bloodwork and a ct scan. He is aware of the lesions in the liver that appear metastatic. He is also aware of the abnormal liver function tests. He does have a smoking history and family history of cancer. He currently does have shortness of breath that is improved with oxygen. He does have a right pleural effusion and was told that it may need to be drained. He has never had a colonoscopy. Patient transferred from 5th floor. Today patient got liver biopsy around 3:30. at after that patient had tachycardia, fall in respiration to 80 on 4 L nasal canula . As per floor nurse patient was anxious and agitated after biopsy. Post biopsy patient complain of pain in back and in chest which decreased after morphine injection. discussed with dr mccartney give 20mg lasix Patient has tachycardia 125, mainating a saturation of 99 % on ventuary mask decrease air entry on right side, dull to percuss. no wheez, no rales OBJECTIVE: Vital Signs Period Temp Pulse Resp BP Sys/Hansen Pulse Ox Last 24 Hr 96.8 F-99 F 91-126 14-26 122-139/73-90 93-95 GENERAL: The patient is awake, alert, and fully oriented, HEAD: Normal with no signs of trauma. EYES: PERRL, extraocular movements intact, ENT: Ears normal, nares patent, oropharynx clear without exudates, NECK: full range of motion, supple. LUNGS: decrease air entry on right side, no rales, no wheez, dull to percuss on right side. left side air entry present, no wheez, mild crepts on left basal area HEART:s1s2 normal ABDOMEN: Soft, nontender, nondistended, no guarding, no rebound, EXTREMITIES: 2+ pulses, warm, well-perfused, no edema. NEUROLOGICAL: Cranial nerves II through XII grossly intact. Normal speech, gait not observed. PSYCH: Normal mood, normal affect. SKIN: Warm, sweating, yello eyes and skin Laboratory Results - last 24 hr 12/03/16 12/03/16 12/04/16 19:00 19:00 06:30 WBC 9.7 RBC 4.09 Hgb 12.3 Hct 35.0 L MCV 85.5 MCHC 35.1 RDW 15.8 Plt Count 28 L* D MPV 7.7 Neutrophils % 53.0 Lymphocytes % 17.0 D Monocytes % 9.0 Eosinophils % 1.0 Basophils % Band Neutrophils 7.0 D Metamyelocytes 1 Myelocytes 2 Promyelocytes 1 Nucleated RBCs Differential Comment Manual diff done Reactive Lymphocytes 9 INR PTT (Actin FS) Fibrinogen Sodium Potassium Chloride Carbon Dioxide Anion Gap BUN Creatinine Creat Clearance w eGFR Random Glucose Serum Osmolality Calcium Magnesium Total Bilirubin GGT AST ALT Alkaline Phosphatase Total Protein Albumin TSH Urine Osmolality 842 Ur Random Sodium 22 Ur Random Potassium 48.8 Ur Random Chloride 71 12/04/16 12/04/16 12/04/16 06:30 06:30 06:30 WBC RBC Hgb Hct MCV MCHC RDW Plt Count MPV Neutrophils % Lymphocytes % Monocytes % Eosinophils % Basophils % Band Neutrophils Metamyelocytes Myelocytes Promyelocytes Nucleated RBCs Differential Comment Reactive Lymphocytes INR 1.30 H PTT (Actin FS) 29.1 Fibrinogen 392.0 Sodium 132 L Potassium 3.9 Chloride 94 L Carbon Dioxide 27 D Anion Gap 11 BUN 16 Creatinine 0.6 L Creat Clearance w eGFR > 60 Random Glucose 117 H Serum Osmolality 269 L Calcium 8.6 Magnesium 2.2 Total Bilirubin 13.3 H GGT 2079 H AST 219 H ALT 204 H Alkaline Phosphatase 379 H Total Protein 5.6 L Albumin 2.3 L TSH 0.83 Urine Osmolality Ur Random Sodium Ur Random Potassium Ur Random Chloride 12/04/16 12/04/16 12/04/16 10:05 10:05 12:50 WBC 9.9 11.1 H RBC 3.89 L 3.97 L Hgb 11.6 L 11.6 L Hct 33.1 L 33.9 L MCV 85.0 85.4 MCHC 35.1 34.3 RDW 15.1 15.2 Plt Count 63 L D 88 L D MPV 7.0 L 7.0 L Neutrophils % 78.0 D Lymphocytes % 10.0 D Monocytes % 7.0 Eosinophils % Basophils % 1.0 Band Neutrophils 2.0 D Metamyelocytes 1 Myelocytes Promyelocytes Nucleated RBCs 4 H Differential Comment Manual diff done Reactive Lymphocytes 1 D INR 1.28 H PTT (Actin FS) Fibrinogen Sodium Potassium Chloride Carbon Dioxide Anion Gap BUN Creatinine Creat Clearance w eGFR Random Glucose Serum Osmolality Calcium Magnesium Total Bilirubin GGT AST ALT Alkaline Phosphatase Total Protein Albumin TSH Urine Osmolality Ur Random Sodium Ur Random Potassium Ur Random Chloride Active Medications Generic Name Dose Route Start Last Admin Trade Name Freq PRN Reason Stop Dose Admin Sodium Chloride 500 mls @ 21 mls/hr 12/04/16 14:40 Normal Saline - IV ASDIR NIK Lactulose 20 gm 12/05/16 10:00 Cephulac (Oral Use) PO DAILY NIK Morphine Sulfate 4 mg 12/04/16 15:50 Morphine Injection - IVPUSH Q3H PRN PAIN Phytonadione 5 mg 12/03/16 17:15 12/04/16 10:57 Aqua Mephyton Injection - SQ 12/05/16 10:01 5 mg DAILY NIK Administration ASSESSMENT/PLAN: liver lesion with right lung mass with pancreatic head mass with obstructive jaundice obstructive jaundice probably from pancraetic mass, bilrubin 13, ggt elevated, appears to be metastaic ds monitor vitals monitor intake/ out put follow liver biopsy report trend LFT oncology and gastro on case continue with lactulose Tachcardia with respiratory distress could be due to right side effusion vs pain vs cardiac vs pneumothorax vs post biopsy bleed vs pulmonary edema no pe in ct angio cxr right side loculated effusion, congested follow ekg : sinus tachy. follow cardiac enzymes hb 11.4, plt 80 will give him 20mg lasxi iv Right side effusion x ray: appears to be loculated effusion on right side hyponatremia increase na at .5 to 1meq/hr thrombocytopenia could be from live mets ascities could be from metastaic ds fluid elctrolyte repeat in am nutrition on clear liquid diet dvt pro: thrombocytopenia, scd gi pro; protonix po dispo: admit in icu Visit type - Emergency Visit Emergency Visit: Yes ED Registration Date: 12/03/16 Care time: The patient presented to the Emergency Department on the above date and was hospitalized for further evaluation of their emergent condition. - New Patient This patient is new to me today: Yes Date on this admission: 12/04/16 - Critical Care Critical Care patient: Yes Total Critical Care Time (in minutes): 45 Critical Care Statement: The care of this patient involved high complexity decision making to prevent further life threatening deterioration of the patient 's condition and/or to evalute & treat vital organ system(s) failure or risk of failure.
[2016-12-04 16:59] LABS: ARTERIAL BLD GAS O2 SATURATION 99.1 % (90-98.9); ARTERIAL BLOOD GAS BASE EXCESS 1.1 meq/l (-2-2); ARTERIAL BLOOD GAS HCO3 25.5 meq/L (22-26)
[2016-12-04 17:00] LABS: ALLENS TEST POSITIVE; ART PUNCT SITE LEFT RADIAL; LPM/O2% 50%; PT. ON O2? YES; TYPE OF O2 VENTI MASK
[2016-12-04] MEDS ORDERED: FUROSEMIDE 40 MG/4 ML INJECTABLE VIAL IVPUSH ONE (18:02)
[2016-12-04 18:15] LABS: MCH 29.7 pg (25.7-33.7); MCHC 34.9 g/dl (32.0-35.9); MEAN CELL VOLUME 85.1 fl (80-96); MEAN PLT VOLUME 7.4 fl (7.5-11.1); PLATELET COUNT 80 K/MM3 (134-434); RDW 15.3 % (11.9-15.9); WHITE BLOOD COUNT 9.9 K/mm3 (4.0-10.0)
[2016-12-04] MEDS ORDERED: ALBUTEROL SO4 2.5/IPRATROPIUM 0.5 INH SOL 3 ML VIAL.NEB. NEB PRN (18:15)
[2016-12-04 18:45] LABS: TROPONIN I 0.33 ng/ml (0.00-0.05)
[2016-12-04 19:15] LABS: PLATELET ESTIMATE SLT DECREASED (NORMAL)
[2016-12-04] MEDS ORDERED: CHLORHEXIDINE GLUCONATE 4% CLEANSER FOR DECOLONIZATION TP SCH (22:00)
[2016-12-04] MEDS: MUPIROCIN 2% TOPICAL OINTMENT FOR DECOLONIZATION NS SCH (22:20)
[2016-12-04] MEDS: NICOTINE 14 MG/24 HOURS TOPICAL PATCH TD SCH (22:21)
[2016-12-04 22:47] LABS: MCH 29.6 pg (25.7-33.7); MCHC 35.1 g/dl (32.0-35.9); MEAN CELL VOLUME 84.4 fl (80-96); PLATELET COUNT 71 K/MM3 (134-434); RDW 15.6 % (11.9-15.9); WHITE BLOOD COUNT 9.8 K/mm3 (4.0-10.0)
[2016-12-05] MEDS: morphine CARPU-JECT 2 MG/1 ML DISP.SYRIN IVPUSH PRN ×2 (03:07→10:54)
[2016-12-05 06:04] LABS: MCH 29.5 pg (25.7-33.7); MCHC 34.9 g/dl (32.0-35.9); MEAN CELL VOLUME 84.3 fl (80-96); MEAN PLT VOLUME 7.1 fl (7.5-11.1); PLATELET COUNT 58 K/MM3 (134-434); RDW 15.7 % (11.9-15.9); WHITE BLOOD COUNT 9.6 K/mm3 (4.0-10.0)
[2016-12-05 06:13] LABS: INR 1.25 (0.82-1.09); PROTHROMBIN TIME (PATIENT) 13.8 SEC (9.98-11.88)
[2016-12-05 06:35] LABS: ALBUMIN 2.3 g/dl (3.4-5.0); ANION GAP 11 (8-16); CO2 28 mmol/L (21-32); CREATININE 0.6 mg/dL (0.7-1.3); GLUCOSE,RANDOM 112 mg/dL (74-106); SGPT/ALT 181 U/L (12-78); TOT PROT 5.5 g/dl (6.4-8.2)
[2016-12-05 06:44] LABS: ALK PHOS 357 U/L (45-117)
[2016-12-05 07:08] LABS: MAGNESIUM 2.1 mg/dL (1.8-2.4); SGOT/AST 257 U/L (15-37)
[2016-12-05 07:11] LABS: BILIRUBIN,TOTAL 16.3 mg/dL (0.2-1.0); PHOSPHOROUS 0.6 mg/dL (2.5-4.9)
[2016-12-05 07:24] LABS: METAMYELOCYTE 2 % (0-2)
[2016-12-05 07:25] LABS: PLATELET COMMENT2 MODERATE DECREASE
[2016-12-05 08:50] LABS: TROPONIN I 3.49 ng/ml (0.00-0.05)
[2016-12-05] MEDS ORDERED: ATORVASTATIN CA 80 MG TABLET (FP) PO ONE ×2 (08:52→13:45)
[2016-12-05] MEDS ORDERED: METOPROLOL TARTRATE 25 MG TABLET (FP) PO ONE (09:05)
--- NOTE | 2016-12-05 09:11 | EKG ---
Test Reason : Blood Pressure : / mmHG Vent. Rate : 118 BPM Atrial Rate : 118 BPM P-R Int : 130 ms QRS Dur : 092 ms QT Int : 338 ms P-R-T Axes : 053 033 025 degrees QTc Int : 473 ms POOR DATA QUALITY, INTERPRETATION MAY BE ADVERSELY AFFECTED SINUS TACHYCARDIA NONSPECIFIC ST ABNORMALITY ABNORMAL ECG WHEN COMPARED WITH ECG OF 03-DEC-2016 09:12, NO SIGNIFICANT CHANGE WAS FOUND Confirmed by LAURIE HANSON MD ([id number]) on 12/05/2016 9:11:14 AM Referred By: Confirmed By:LAURIE HANSON MD
[2016-12-05] MEDS ORDERED: MULTIVITAMINS (DAILY MVI) TABLET (FP) PO SCH (10:00)
[2016-12-05] MEDS ORDERED: LACTULOSE 20 GM/30 ML UDC (FOR ORAL USE ONLY) PO SCH (10:00)
[2016-12-05] MEDS ORDERED: PANTOPRAZOLE 40 MG TABLET (FP) PO SCH (10:00)
[2016-12-05] MEDS ORDERED: PT OWN MED DRAWER 7, Y5N ONE (10:07)
[2016-12-05] MEDS: MUPIROCIN 2% TOPICAL OINTMENT FOR DECOLONIZATION NS SCH (10:07)
[2016-12-05] MEDS: NICOTINE 14 MG/24 HOURS TOPICAL PATCH TD SCH (10:07)
--- NOTE | 2016-12-05 11:11 | PN ---
Progress Note (short form) - Note Progress Note: Patient seen and examined feels better today had liver biopsy yestereday Last Vital Signs Temp Pulse Resp BP Pulse Ox 98.6 F 124 H 22 121/88 96 12/05/16 06:12 12/05/16 08:00 12/05/16 08:00 12/05/16 08:00 12/05/16 09:00 Jaundiced Cor: RSR, No murmurs, No gallops Lungs: Clear to P&A Abd: Soft, Normal bowel sounds, ascites+, hepatomegaly+ Ext:1+ edema Abnormal Lab Results 12/04/16 12/04/16 12/04/16 06:30 06:30 10:05 WBC RBC Hgb Hct Plt Count MPV Nucleated RBCs INR 1.28 H ABG pO2 at Pt Temp ABG O2 Sat (Measured) Sodium Chloride Creatinine Random Glucose Serum Osmolality 269 L Phosphorus Total Bilirubin AST ALT Alkaline Phosphatase Troponin I Total Protein Albumin Carcinoembryonic Ag 265.4 H CA 19-9 Antigen 1234 H 12/04/16 12/04/16 12/04/16 12:50 16:41 17:00 WBC 11.1 H RBC 3.97 L 3.85 L Hgb 11.6 L 11.4 L Hct 33.9 L 32.7 L Plt Count 88 L D 80 L MPV 7.0 L 7.4 L Nucleated RBCs 4 H INR ABG pO2 at Pt Temp 148.0 H ABG O2 Sat (Measured) 99.1 H Sodium Chloride Creatinine Random Glucose Serum Osmolality Phosphorus Total Bilirubin AST ALT Alkaline Phosphatase Troponin I Total Protein Albumin Carcinoembryonic Ag CA 19-9 Antigen 12/04/16 12/04/16 12/05/16 17:00 22:30 05:35 WBC RBC 3.79 L 3.82 L Hgb 11.2 L 11.2 L Hct 32.0 L 32.2 L Plt Count 71 L 58 L MPV 7.0 L 7.1 L Nucleated RBCs INR ABG pO2 at Pt Temp ABG O2 Sat (Measured) Sodium Chloride Creatinine Random Glucose Serum Osmolality Phosphorus Total Bilirubin AST ALT Alkaline Phosphatase Troponin I 0.33 H D Total Protein Albumin Carcinoembryonic Ag CA 19-9 Antigen 12/05/16 12/05/16 05:35 05:35 WBC RBC Hgb Hct Plt Count MPV Nucleated RBCs INR 1.25 H ABG pO2 at Pt Temp ABG O2 Sat (Measured) Sodium 133 L Chloride 94 L Creatinine 0.6 L Random Glucose 112 H Serum Osmolality Phosphorus 0.6 L* Total Bilirubin 16.3 H* D AST 257 H ALT 181 H Alkaline Phosphatase 357 H Troponin I 3.49 H* D Total Protein 5.5 L Albumin 2.3 L Carcinoembryonic Ag CA 19-9 Antigen Home Medication List Medication Instructions Recorded Confirmed Type Bromezapam 6 mg PO PRN 12/03/16 History Famotidine [Pepcid] 20 mg PO DAILY 12/03/16 12/03/16 History Active Medications Generic Name Dose Route Start Last Admin Trade Name Freq PRN Reason Stop Dose Admin Albuterol/Ipratropium 1 amp 12/04/16 18:15 Duoneb - NEB Q6H PRN SHORTNESS OF BREATH Atorvastatin Calcium 80 mg 12/06/16 22:00 Lipitor - PO HS NIK Chlorhexidine Gluconate 1 applic 12/04/16 22:00 12/04/16 22:20 Hibiclens For Decolonization - TP 1 applic HS NKI Administration Lactulose 20 gm 12/05/16 10:00 12/05/16 10:08 Cephulac (Oral Use) PO 20 gm DAILY NIK Administration Morphine Sulfate 4 mg 12/04/16 15:50 12/05/16 10:54 Morphine Injection - IVPUSH 4 mg Q3H PRN Administration PAIN Multivitamins/Minerals/Vitamin C 1 tab 12/05/16 10:00 12/05/16 10:05 Tab-A-Vit - PO 1 tab DAILY NIK Administration Mupirocin 1 applic 12/04/16 22:00 12/05/16 10:07 Bactroban Ointment (For Decolonization) - NS 12/09/16 21:59 1 inch BID NIK Administration Nicotine 14 mg 12/04/16 17:45 12/05/16 10:07 Nicoderm Patch - TD 14 mg DAILY NIK Administration Pantoprazole Sodium 40 mg 12/05/16 10:00 12/05/16 10:07 Protonix - PO 40 mg DAILY NIK Administration Potassium Phos/Sodium Phos 1 packet 12/05/16 14:00 Phos-Nak Packet - PO 12/06/16 06:01 TID NIK A/P 56 y/o patient with presumed metastatic cancer ? pancreas ,elevated CA 19.9 s/p liver biopsy was given 4 units monodonor platelets perioperatively hemoglobin stable platelets > 28645 resp. status improved with diuretics. mod. sized rt. pleural effusion CA 19.9 elevated await pathology MRI showed early mets vs ? liver disease
[2016-12-05] MEDS: PHYTONADIONE 10 MG/1 ML AMP SQ SCH (11:35)
--- NOTE | 2016-12-05 12:12 | PN ---
Teaching Attending Note Name of Resident: Neal Gonzales ATTENDING PHYSICIAN STATEMENT I saw and evaluated the patient. I reviewed the resident's note and discussed the case with the resident. I agree with the resident's findings and plan as documented. SUBJECTIVE: Patient seen and examined in the ICU. Reports some right flank discomfort and LBP that is worse than yesterday. No CP. SOB is slightly better. H&H stable Intake & Output 12/02/16 12/03/16 12/04/16 12/05/16 23:59 23:59 23:59 23:59 Intake Total 200 1050 300 Output Total 900 800 Balance 200 150 -500 Weight 208 lb 12.8 oz 210 lb Last Vital Signs Temp Pulse Resp BP Pulse Ox 98.4 F 104 H 20 124/90 96 12/05/16 10:03 12/05/16 11:31 12/05/16 10:03 12/05/16 10:03 12/05/16 11:31 Active Medications Albuterol/Ipratropium (Duoneb -) 1 amp NEB Q6H PRN PRN Reason: SHORTNESS OF BREATH Atorvastatin Calcium (Lipitor -) 80 mg PO HS [facility] Chlorhexidine Gluconate (Hibiclens For Decolonization -) 1 applic TP HS [facility] Last Admin: 12/04/16 22:20 Dose: 1 applic Lactulose (Cephulac (Oral Use)) 20 gm PO DAILY [facility] Last Admin: 12/05/16 10:08 Dose: 20 gm Morphine Sulfate (Morphine Injection -) 4 mg IVPUSH Q3H PRN PRN Reason: PAIN Last Admin: 12/05/16 10:54 Dose: 4 mg Multivitamins/Minerals/Vitamin C (Tab-A-Vit -) 1 tab PO DAILY [facility] Last Admin: 12/05/16 10:05 Dose: 1 tab Mupirocin (Bactroban Ointment (For Decolonization) -) 1 applic NS BID [facility] Stop: 12/09/16 21:59 Last Admin: 12/05/16 10:07 Dose: 1 inch Nicotine (Nicoderm Patch -) 14 mg TD DAILY [facility] Last Admin: 12/05/16 10:07 Dose: 14 mg Pantoprazole Sodium (Protonix -) 40 mg PO DAILY [facility] Last Admin: 12/05/16 10:07 Dose: 40 mg Potassium Phos/Sodium Phos (Phos-Nak Packet -) 1 packet PO TID [facility] Stop: 12/06/16 06:01 Constitutional: Yes: Mildly tachypenic Eyes: Yes: Sclera Icterus HENT: Yes: Atraumatic, Normocephalic Neck: Yes: Supple, Trachea Midline Cardiovascular: Yes: Regular Rate and Rhythm Respiratory: Yes: Cough, Diminished, Dullness, On Nasal O2, Rhonchi, Tachypnea. No: Accessory Muscle Use, Stridor, Wheezes ...Inspection: Yes: WNL ...Clubbing: No Gastrointestinal: Yes: Normal Bowel Sounds, Soft Renal/: Yes: WNL Musculoskeletal: Yes: WNL Extremities: Yes: WNL Edema: Yes Peripheral Pulses WNL: Yes Integumentary: Yes: Jaundice Neurological: Yes: Alert, Oriented Psychiatric: Yes: Alert, Oriented Labs: Laboratory Results - last 24 hr 12/03/16 12/04/16 12/04/16 09:00 06:30 06:30 WBC RBC Hgb Hct MCV MCHC RDW Plt Count MPV Neutrophils % Lymphocytes % Monocytes % Eosinophils % Basophils % Band Neutrophils Metamyelocytes Myelocytes Nucleated RBCs Differential Comment Reactive Lymphocytes Platelet Estimate Platelet Comment Morphology Comment INR PTT (Actin FS) Puncture Site ABG pH ABG pCO2 at Pt Temp ABG pO2 at Pt Temp ABG HCO3 ABG O2 Sat (Measured) ABG O2 Content ABG Base Excess Imer Test O2 Delivery Device Oxygen Flow Rate PEEP Sodium Potassium Chloride Carbon Dioxide Anion Gap BUN Creatinine Creat Clearance w eGFR Random Glucose Serum Osmolality Calcium Phosphorus Magnesium Total Bilirubin AST ALT Alkaline Phosphatase Creatine Kinase CK-MB (CK-2) CK-MB (CK-2) Rel Index Troponin I Total Protein Albumin Tumor Marker AFP 4.1 Carcinoembryonic Ag 265.4 H CA 19-9 Antigen 1234 H Hepatitis C Antibody Cancelled 12/04/16 12/04/16 12/04/16 06:30 06:30 12:50 WBC 11.1 H RBC 3.97 L Hgb 11.6 L Hct 33.9 L MCV 85.4 MCHC 34.3 RDW 15.2 Plt Count 88 L D MPV 7.0 L Neutrophils % 78.0 D Lymphocytes % 10.0 D Monocytes % 7.0 Eosinophils % Basophils % 1.0 Band Neutrophils 2.0 D Metamyelocytes 1 Myelocytes Nucleated RBCs 4 H Differential Comment Manual diff done Reactive Lymphocytes 1 D Platelet Estimate Platelet Comment Morphology Comment INR PTT (Actin FS) Puncture Site ABG pH ABG pCO2 at Pt Temp ABG pO2 at Pt Temp ABG HCO3 ABG O2 Sat (Measured) ABG O2 Content ABG Base Excess Imer Test O2 Delivery Device Oxygen Flow Rate PEEP Sodium Potassium Chloride Carbon Dioxide Anion Gap BUN Creatinine Creat Clearance w eGFR Random Glucose Serum Osmolality 269 L Calcium Phosphorus Magnesium Total Bilirubin AST ALT Alkaline Phosphatase Creatine Kinase CK-MB (CK-2) CK-MB (CK-2) Rel Index Troponin I Total Protein Albumin Tumor Marker AFP Carcinoembryonic Ag CA 19-9 Antigen Hepatitis C Antibody 0.1 12/04/16 12/04/16 12/04/16 16:41 17:00 17:00 WBC 9.9 RBC 3.85 L Hgb 11.4 L Hct 32.7 L MCV 85.1 MCHC 34.9 RDW 15.3 Plt Count 80 L MPV 7.4 L Neutrophils % 65.0 Lymphocytes % 16.0 D Monocytes % 9.0 Eosinophils % 2.0 D Basophils % Band Neutrophils 7.0 D Metamyelocytes Myelocytes Nucleated RBCs Differential Comment Manual diff done Reactive Lymphocytes 1 Platelet Estimate Slt decreased Platelet Comment Morphology Comment Slide scanned INR PTT (Actin FS) Puncture Site Left radial ABG pH 7.40 ABG pCO2 at Pt Temp 41.9 ABG pO2 at Pt Temp 148.0 H ABG HCO3 25.5 ABG O2 Sat (Measured) 99.1 H ABG O2 Content 15.9 ABG Base Excess 1.1 Imer Test Positive O2 Delivery Device Venti mask Oxygen Flow Rate 50% PEEP 0.0 Sodium Potassium Chloride Carbon Dioxide Anion Gap BUN Creatinine Creat Clearance w eGFR Random Glucose Serum Osmolality Calcium Phosphorus Magnesium Total Bilirubin AST ALT Alkaline Phosphatase Creatine Kinase 187 D CK-MB (CK-2) 3.506 CK-MB (CK-2) Rel Index Troponin I 0.33 H D Total Protein Albumin Tumor Marker AFP Carcinoembryonic Ag CA 19-9 Antigen Hepatitis C Antibody 12/04/16 12/04/16 12/05/16 17:00 22:30 05:35 WBC 9.8 9.6 RBC 3.79 L 3.82 L Hgb 11.2 L 11.2 L Hct 32.0 L 32.2 L MCV 84.4 84.3 MCHC 35.1 34.9 RDW 15.6 15.7 Plt Count 71 L 58 L MPV 7.0 L 7.1 L Neutrophils % 63.0 Lymphocytes % 18.0 Monocytes % 7.0 Eosinophils % 1.0 Basophils % Band Neutrophils 7.0 Metamyelocytes 2 D Myelocytes 2 Nucleated RBCs Differential Comment Reactive Lymphocytes Platelet Estimate Platelet Comment Moderate decrease Morphology Comment INR PTT (Actin FS) Puncture Site ABG pH ABG pCO2 at Pt Temp ABG pO2 at Pt Temp ABG HCO3 ABG O2 Sat (Measured) ABG O2 Content ABG Base Excess Imer Test O2 Delivery Device Oxygen Flow Rate PEEP Sodium Potassium Chloride Carbon Dioxide Anion Gap BUN Creatinine Creat Clearance w eGFR Random Glucose Serum Osmolality Calcium Phosphorus Magnesium Total Bilirubin AST ALT Alkaline Phosphatase Creatine Kinase CK-MB (CK-2) CK-MB (CK-2) Rel Index Cancelled Troponin I Total Protein Albumin Tumor Marker AFP Carcinoembryonic Ag CA 19-9 Antigen Hepatitis C Antibody 12/05/16 12/05/16 12/05/16 05:35 05:35 06:30 WBC RBC Hgb Hct MCV MCHC RDW Plt Count MPV Neutrophils % Lymphocytes % Monocytes % Eosinophils % Basophils % Band Neutrophils Metamyelocytes Myelocytes Nucleated RBCs Differential Comment Reactive Lymphocytes Platelet Estimate Platelet Comment Morphology Comment INR 1.25 H PTT (Actin FS) 31.0 Puncture Site ABG pH ABG pCO2 at Pt Temp ABG pO2 at Pt Temp ABG HCO3 ABG O2 Sat (Measured) ABG O2 Content ABG Base Excess Imer Test O2 Delivery Device Oxygen Flow Rate PEEP Sodium 133 L Potassium 3.8 Chloride 94 L Carbon Dioxide 28 Anion Gap 11 BUN 17 Creatinine 0.6 L Creat Clearance w eGFR > 60 Random Glucose 112 H Serum Osmolality Calcium 9.0 Phosphorus 0.6 L* Magnesium 2.1 Total Bilirubin 16.3 H* D AST 257 H ALT 181 H Alkaline Phosphatase 357 H Creatine Kinase CK-MB (CK-2) CK-MB (CK-2) Rel Index Troponin I 3.49 H* D Cancelled Total Protein 5.5 L Albumin 2.3 L Tumor Marker AFP Carcinoembryonic Ag CA 19-9 Antigen Hepatitis C Antibody Problem List - Problems (1) Ascites Code(s): R18.8 - OTHER ASCITES (2) Elevated LFTs Code(s): R94.5 - ABNORMAL RESULTS OF LIVER FUNCTION STUDIES (3) GERD (gastroesophageal reflux disease) Code(s): K21.9 - GASTRO-ESOPHAGEAL REFLUX DISEASE WITHOUT ESOPHAGITIS (4) Hyponatremia Code(s): E87.1 - HYPO-OSMOLALITY AND HYPONATREMIA (5) Jaundice Code(s): R17 - UNSPECIFIED JAUNDICE (6) Pleural effusion on right Code(s): J90 - PLEURAL EFFUSION, NOT ELSEWHERE CLASSIFIED (7) Smoker Code(s): F17.200 - NICOTINE DEPENDENCE, UNSPECIFIED, UNCOMPLICATED (8) Thrombocytopenia Code(s): D69.6 - THROMBOCYTOPENIA, UNSPECIFIED (9) Mass of right lung Code(s): R91.8 - OTHER NONSPECIFIC ABNORMAL FINDING OF LUNG FIELD Assessment/Plan Heme for transfusional support O2 as needed Follow cultures Lactulose Unfortunately appears like metastatic CA Follow cytology Telemetry monitoring Dr Gates CCTime 35" Problem List - Problems (1) Ascites Code(s): R18.8 - OTHER ASCITES (2) Elevated LFTs Code(s): R94.5 - ABNORMAL RESULTS OF LIVER FUNCTION STUDIES (3) GERD (gastroesophageal reflux disease) Code(s): K21.9 - GASTRO-ESOPHAGEAL REFLUX DISEASE WITHOUT ESOPHAGITIS (4) Hyponatremia Code(s): E87.1 - HYPO-OSMOLALITY AND HYPONATREMIA (5) Jaundice Code(s): R17 - UNSPECIFIED JAUNDICE (6) Pleural effusion on right Code(s): J90 - PLEURAL EFFUSION, NOT ELSEWHERE CLASSIFIED (7) Smoker Code(s): F17.200 - NICOTINE DEPENDENCE, UNSPECIFIED, UNCOMPLICATED (8) Thrombocytopenia Code(s): D69.6 - THROMBOCYTOPENIA, UNSPECIFIED (9) Mass of right lung Code(s): R91.8 - OTHER NONSPECIFIC ABNORMAL FINDING OF LUNG FIELD
--- NOTE | 2016-12-05 12:22 | CONSULT ---
- Consultation REQUESTING PROVIDER: Blas Vallecillo DO Vascular Surgery CONSULT REQUEST: We have been asked to surgically evaluate this patient for infrarenal and b/l iliac aneurysms. PCP: Savita Rhodes MD History Source: Patient, Medical Record CC: Jaundice and SOB HPI: Called to eval 56 yo male with PMHx of GERD. Currently getting work-up for metastatic disease (lung/liver/pancreas). ABD CT performed and incidental finding of infrarenal AA 3.3 x 3.2 cm and b/l proximal iliac aneurysms: right 1.4cm and Left 2.2cm. PMHx: As above PSHx: Inguinal Hernia Repair Smoking Hx: Current every day smoker Allergies: NKDA Home Medications: Bromezapam 6 mg PO PRN 12/03/16 Famotidine [Pepcid] 20 mg PO DAILY 12/03/16 ROS: CONSTITUTIONAL: Absent: fever, chills, diaphoresis, generalized weakness, malaise, loss of appetite, weight change CARDIOVASCULAR: Absent: chest pain, syncope, palpitations, irregular heart rate , lightheadedness, peripheral edema RESPIRATORY: Absent: cough, shortness of breath, dyspnea with exertion, wheezing , stridor, hemoptysis GASTROINTESTINAL:Absent: abdominal pain, abdominal distension, nausea, vomiting , diarrhea, constipation, melena, hematochezia GENITOURINARY: Absent: dysuria, frequency, urgency, hesitancy, hematuria, flank pain, genital pain MUSCULOSKELETAL: Absent: myalgia, arthralgia, joint swelling, back pain, neck pain SKIN: Absent: rash, itching, pallor HEMATOLOGIC/IMMUNOLOGIC: Absent: easy bleeding, easy bruising, lymphadenopathy NEUROLOGIC: Absent: headache, focal weakness, paresthesias, dizziness, unsteady gait, seizure, mental status changes, PSYCHIATRIC: Absent: anxiety, depression, suicidal or homicidal ideation, hallucinations. PE: GENERAL: Awake, alert, and fully oriented HEAD: Normal with no signs of trauma. EYES: PERRL, sclera icteric NECK: Normal ROM, supple without lymphadenopathy, JVD, or masses. ABDOMEN: Soft, nontender, not distended, normoactive bowel sounds, no guarding, no rebound, no palpable masses. SKIN: jaundice Vital Signs Temperature 98.4 F 12/05/16 10:03 Pulse Rate 104 H 12/05/16 11:31 Respiratory Rate 20 12/05/16 10:03 Blood Pressure 124/90 12/05/16 10:03 O2 Sat by Pulse Oximetry (%) 96 12/05/16 11:31 Lab Results WBC 9.6 K/mm3 (4.0-10.0) 12/05/16 05:35 RBC 3.82 M/mm3 (4.00-5.60) L 12/05/16 05:35 Hgb 11.2 GM/dL (11.7-16.9) L 12/05/16 05:35 Hct 32.2 % (35.4-49) L 12/05/16 05:35 MCV 84.3 fl (80-96) 12/05/16 05:35 MCHC 34.9 g/dl (32.0-35.9) 12/05/16 05:35 RDW 15.7 % (11.9-15.9) 12/05/16 05:35 Plt Count 58 K/MM3 (134-434) L 12/05/16 05:35 Sodium 133 mmol/L (136-145) L 12/05/16 05:35 Potassium 3.8 mmol/L (3.5-5.1) 12/05/16 05:35 Chloride 94 mmol/L (98-107) L 12/05/16 05:35 Carbon Dioxide 28 mmol/L (21-32) 12/05/16 05:35 Anion Gap 11 (8-16) 12/05/16 05:35 BUN 17 mg/dL (7-18) 12/05/16 05:35 Creatinine 0.6 mg/dL (0.7-1.3) L 12/05/16 05:35 Random Glucose 112 mg/dL (74-106) H 12/05/16 05:35 Calcium 9.0 mg/dL (8.5-10.1) 12/05/16 05:35 Blood Type O POSITIVE 12/03/16 09:20 Antibody Screen Negative 12/03/16 09:20 INR 1.25 (0.82-1.09) H 12/05/16 05:35 Problem List - Problems (1) Aneurysm of infrarenal abdominal aorta Assessment/Plan: Incidental finding of infrarenal and b/l iliac artery aneurysms. under 5cm we dont' repair recommend patient have a repeat CT in 6 months to re-evaluate no surgical intervention at this time cont medical management above plan discussed with dr. vallecillo and agrees Code(s): I71.4 - ABDOMINAL AORTIC ANEURYSM, WITHOUT RUPTURE Visit type - Case Type Case Type: ED Admission - Emergency Emergency Visit: Yes ED Registration Date: 12/03/16 Care time: The patient presented to the Emergency Department on the above date and was hospitalized for further evaluation of their emergent condition. - New patient This patient is new to me today: Yes Date on this admission: 12/05/16
--- NOTE | 2016-12-05 13:12 | PN ---
Progress Note, Physician History of Present Illness: Pt seen and examined at bedside. He is more awake and alert today. His breathing is better today. He denies chest pain. - Current Medication List Current Medications: Active Medications Albuterol/Ipratropium (Duoneb -) 1 amp NEB Q6H PRN PRN Reason: SHORTNESS OF BREATH Atorvastatin Calcium (Lipitor -) 80 mg PO HS [facility] Chlorhexidine Gluconate (Hibiclens For Decolonization -) 1 applic TP HS [facility] Last Admin: 12/04/16 22:20 Dose: 1 applic Lactulose (Cephulac (Oral Use)) 20 gm PO DAILY [facility] Last Admin: 12/05/16 10:08 Dose: 20 gm Morphine Sulfate (Morphine Injection -) 4 mg IVPUSH Q3H PRN PRN Reason: PAIN Last Admin: 12/05/16 10:54 Dose: 4 mg Multivitamins/Minerals/Vitamin C (Tab-A-Vit -) 1 tab PO DAILY [facility] Last Admin: 12/05/16 10:05 Dose: 1 tab Mupirocin (Bactroban Ointment (For Decolonization) -) 1 applic NS BID [facility] Stop: 12/09/16 21:59 Last Admin: 12/05/16 10:07 Dose: 1 inch Nicotine (Nicoderm Patch -) 14 mg TD DAILY [facility] Last Admin: 12/05/16 10:07 Dose: 14 mg Pantoprazole Sodium (Protonix -) 40 mg PO DAILY [facility] Last Admin: 12/05/16 10:07 Dose: 40 mg Potassium Phos/Sodium Phos (Phos-Nak Packet -) 1 packet PO TID [facility] Stop: 12/06/16 06:01 - Objective Vital Signs: Vital Signs Temperature 98.4 F 12/05/16 10:03 Pulse Rate 96 H 12/05/16 12:03 Respiratory Rate 22 12/05/16 12:03 Blood Pressure 119/80 12/05/16 12:03 O2 Sat by Pulse Oximetry (%) 96 12/05/16 11:31 Constitutional: Yes: Calm Eyes: Yes: Sclera Icterus HENT: Yes: Atraumatic Neck: Yes: Supple Cardiovascular: Yes: S1, S2 Respiratory: Yes: On Nasal O2, Other (decreased right lung sounds) Gastrointestinal: Yes: Soft Genitourinary: Yes: WNL Musculoskeletal: Yes: WNL Edema: No Integumentary: Yes: Jaundice Neurological: Yes: Oriented Psychiatric: Yes: Oriented Labs: CBC, BMP 12/05/16 05:35 12/05/16 05:35 INR, PTT INR 1.25 (0.82-1.09) H 12/05/16 05:35 Fibrinogen 392.0 mg/dL (238-498) 12/04/16 06:30 Problem List - Problems (1) Elevated LFTs Code(s): R94.5 - ABNORMAL RESULTS OF LIVER FUNCTION STUDIES (2) Jaundice Code(s): R17 - UNSPECIFIED JAUNDICE (3) Pleural effusion on right Code(s): J90 - PLEURAL EFFUSION, NOT ELSEWHERE CLASSIFIED (4) GERD (gastroesophageal reflux disease) Code(s): K21.9 - GASTRO-ESOPHAGEAL REFLUX DISEASE WITHOUT ESOPHAGITIS (5) Ascites Code(s): R18.8 - OTHER ASCITES (6) Hyponatremia Code(s): E87.1 - HYPO-OSMOLALITY AND HYPONATREMIA (7) Thrombocytopenia Code(s): D69.6 - THROMBOCYTOPENIA, UNSPECIFIED (8) Smoker Code(s): F17.200 - NICOTINE DEPENDENCE, UNSPECIFIED, UNCOMPLICATED Assessment/Plan Current Medications Generic Name Dose Route Start Last Admin Trade Name Freq PRN Reason Stop Dose Admin Albuterol/Ipratropium 1 amp 12/04/16 18:15 Duoneb - NEB Q6H PRN SHORTNESS OF BREATH Atorvastatin Calcium 80 mg 12/06/16 22:00 Lipitor - PO HS NIK Chlorhexidine Gluconate 1 applic 12/04/16 22:00 12/04/16 22:20 Hibiclens For Decolonization - TP 1 applic HS NIK Administration Lactulose 20 gm 12/05/16 10:00 12/05/16 10:08 Cephulac (Oral Use) PO 20 gm DAILY NIK Administration Morphine Sulfate 4 mg 12/04/16 15:50 12/05/16 10:54 Morphine Injection - IVPUSH 4 mg Q3H PRN Administration PAIN Multivitamins/Minerals/Vitamin C 1 tab 12/05/16 10:00 12/05/16 10:05 Tab-A-Vit - PO 1 tab DAILY NIK Administration Mupirocin 1 applic 12/04/16 22:00 12/05/16 10:07 Bactroban Ointment (For Decolonization) - NS 12/09/16 21:59 1 inch BID NIK Administration Nicotine 14 mg 12/04/16 17:45 12/05/16 10:07 Nicoderm Patch - TD 14 mg DAILY NIK Administration Pantoprazole Sodium 40 mg 12/05/16 10:00 12/05/16 10:07 Protonix - PO 40 mg DAILY NIK Administration Potassium Phos/Sodium Phos 1 packet 12/05/16 14:00 Phos-Nak Packet - PO 12/06/16 06:01 TID NIK Impression 1. right lung mass 2. liver lesions 3. hepatosplenomegaly 4. transaminitis 5. jaundice 6. GERD 7. smoking history 8. abdominal aortic aneurysm 9. thrombocytopenia 10. hyponatremia 11. unintentional weight loss 12. mild ascites 13. elevated troponin Plan - liver ultrasound does not show bleed - cxr mild improvement - tumor markers are elevated - follow up biopsy results - cardiology evaluation for elevated TNI - transferred to ICU last night for observation - will monitor on tele - lfts are worsening - MRI reviewed - case discussed with family at length - overall prognosis is poor Dr Rhodes
[2016-12-05] MEDS ORDERED: NAPH,MB-DB/K PH,MBDB POWDER PACKET PO SCH (14:00)
[2016-12-05] MEDS ORDERED: ALBUTEROL SO4 2.5/IPRATROPIUM 0.5 INH SOL 3 ML VIAL.NEB. NEB PRN (14:38)
[2016-12-05] MEDS ORDERED: morphine CARPU-JECT 2 MG/1 ML DISP.SYRIN IVPUSH PRN (14:38)
--- NOTE | 2016-12-05 15:04 | PN ---
Physical Exam: SUBJECTIVE: Patient seen and examined patient states that he has pain in chest denies pain in abdomen has decrease breath sounds on right side. haemoglobin stable sob slightly better OBJECTIVE: Vital Signs Period Temp Pulse Resp BP Sys/Hansen Pulse Ox Last 24 Hr 96.8 F-99 F 92-126 14-56 109-139/69-94 93-98 GENERAL: The patient is awake, alert, and fully oriented, HEAD: Normal with no signs of trauma. EYES: PERRL, extraocular movements intact, ENT: Ears normal, nares patent, oropharynx clear without exudates, NECK: full range of motion, supple. LUNGS: decrease air entry on right side, no rales, no wheez, dull to percuss on right side. left side air entry present, no wheez, HEART:s1s2 normal ABDOMEN: Soft, nontender, nondistended, no guarding, no rebound, EXTREMITIES: 2+ pulses, warm, well-perfused, no edema. NEUROLOGICAL: Cranial nerves II through XII grossly intact. Normal speech, gait not observed. PSYCH: Normal mood, normal affect. SKIN: Warm, sweating, yello eyes and skin Laboratory Results - last 24 hr 12/04/16 12/04/16 12/04/16 06:30 06:30 06:30 WBC RBC Hgb Hct MCV MCHC RDW Plt Count MPV Neutrophils % Lymphocytes % Monocytes % Eosinophils % Band Neutrophils Metamyelocytes Myelocytes Differential Comment Reactive Lymphocytes Platelet Estimate Platelet Comment Morphology Comment INR PTT (Actin FS) Puncture Site ABG pH ABG pCO2 at Pt Temp ABG pO2 at Pt Temp ABG HCO3 ABG O2 Sat (Measured) ABG O2 Content ABG Base Excess Imer Test O2 Delivery Device Oxygen Flow Rate PEEP Sodium Potassium Chloride Carbon Dioxide Anion Gap BUN Creatinine Creat Clearance w eGFR Random Glucose Calcium Phosphorus Magnesium Total Bilirubin AST ALT Alkaline Phosphatase Creatine Kinase CK-MB (CK-2) CK-MB (CK-2) Rel Index Troponin I Total Protein Albumin Tumor Marker AFP 4.1 Carcinoembryonic Ag 265.4 H CA 19-9 Antigen 1234 H Hepatitis C Antibody 0.1 12/04/16 12/04/16 12/04/16 16:41 17:00 17:00 WBC 9.9 RBC 3.85 L Hgb 11.4 L Hct 32.7 L MCV 85.1 MCHC 34.9 RDW 15.3 Plt Count 80 L MPV 7.4 L Neutrophils % 65.0 Lymphocytes % 16.0 D Monocytes % 9.0 Eosinophils % 2.0 D Band Neutrophils 7.0 D Metamyelocytes Myelocytes Differential Comment Manual diff done Reactive Lymphocytes 1 Platelet Estimate Slt decreased Platelet Comment Morphology Comment Slide scanned INR PTT (Actin FS) Puncture Site Left radial ABG pH 7.40 ABG pCO2 at Pt Temp 41.9 ABG pO2 at Pt Temp 148.0 H ABG HCO3 25.5 ABG O2 Sat (Measured) 99.1 H ABG O2 Content 15.9 ABG Base Excess 1.1 Imer Test Positive O2 Delivery Device Venti mask Oxygen Flow Rate 50% PEEP 0.0 Sodium Potassium Chloride Carbon Dioxide Anion Gap BUN Creatinine Creat Clearance w eGFR Random Glucose Calcium Phosphorus Magnesium Total Bilirubin AST ALT Alkaline Phosphatase Creatine Kinase 187 D CK-MB (CK-2) 3.506 CK-MB (CK-2) Rel Index Troponin I 0.33 H D Total Protein Albumin Tumor Marker AFP Carcinoembryonic Ag CA 19-9 Antigen Hepatitis C Antibody 12/04/16 12/04/16 12/05/16 17:00 22:30 05:35 WBC 9.8 9.6 RBC 3.79 L 3.82 L Hgb 11.2 L 11.2 L Hct 32.0 L 32.2 L MCV 84.4 84.3 MCHC 35.1 34.9 RDW 15.6 15.7 Plt Count 71 L 58 L MPV 7.0 L 7.1 L Neutrophils % 63.0 Lymphocytes % 18.0 Monocytes % 7.0 Eosinophils % 1.0 Band Neutrophils 7.0 Metamyelocytes 2 D Myelocytes 2 Differential Comment Reactive Lymphocytes Platelet Estimate Platelet Comment Moderate decrease Morphology Comment INR PTT (Actin FS) Puncture Site ABG pH ABG pCO2 at Pt Temp ABG pO2 at Pt Temp ABG HCO3 ABG O2 Sat (Measured) ABG O2 Content ABG Base Excess Imer Test O2 Delivery Device Oxygen Flow Rate PEEP Sodium Potassium Chloride Carbon Dioxide Anion Gap BUN Creatinine Creat Clearance w eGFR Random Glucose Calcium Phosphorus Magnesium Total Bilirubin AST ALT Alkaline Phosphatase Creatine Kinase CK-MB (CK-2) CK-MB (CK-2) Rel Index Cancelled Troponin I Total Protein Albumin Tumor Marker AFP Carcinoembryonic Ag CA 19-9 Antigen Hepatitis C Antibody 12/05/16 12/05/1617 05:35 05:35 06:30 WBC RBC Hgb Hct MCV MCHC RDW Plt Count MPV Neutrophils % Lymphocytes % Monocytes % Eosinophils % Band Neutrophils Metamyelocytes Myelocytes Differential Comment Reactive Lymphocytes Platelet Estimate Platelet Comment Morphology Comment INR 1.25 H PTT (Actin FS) 31.0 Puncture Site ABG pH ABG pCO2 at Pt Temp ABG pO2 at Pt Temp ABG HCO3 ABG O2 Sat (Measured) ABG O2 Content ABG Base Excess Imer Test O2 Delivery Device Oxygen Flow Rate PEEP Sodium 133 L Potassium 3.8 Chloride 94 L Carbon Dioxide 28 Anion Gap 11 BUN 17 Creatinine 0.6 L Creat Clearance w eGFR > 60 Random Glucose 112 H Calcium 9.0 Phosphorus 0.6 L* Magnesium 2.1 Total Bilirubin 16.3 H* D AST 257 H ALT 181 H Alkaline Phosphatase 357 H Creatine Kinase CK-MB (CK-2) CK-MB (CK-2) Rel Index Troponin I 3.49 H* D Cancelled Total Protein 5.5 L Albumin 2.3 L Tumor Marker AFP Carcinoembryonic Ag CA 19-9 Antigen Hepatitis C Antibody Active Medications Generic Name Dose Route Start Last Admin Trade Name Freq PRN Reason Stop Dose Admin Albuterol/Ipratropium 1 amp 12/05/16 14:38 Duoneb - NEB Q6H PRN SHORTNESS OF BREATH Lactulose 20 gm 12/06/16 10:00 Cephulac (Oral Use) PO DAILY [facility] Morphine Sulfate 4 mg 12/05/16 15:02 Morphine Injection - IVPUSH Q3H PRN PAIN Multivitamins/Minerals/Vitamin C 1 tab 12/06/16 10:00 Tab-A-Vit - PO DAILY [facility] Nicotine 14 mg 12/06/16 10:00 Nicoderm Patch - TD DAILY [facility] Pantoprazole Sodium 40 mg 12/06/16 10:00 Protonix - PO DAILY [facility] Potassium Phos/Sodium Phos 1 packet 12/05/16 22:00 Phos-Nak Packet - PO 12/06/16 06:01 TID NIK ASSESSMENT/PLAN: liver lesion with right lung mass with obstructive jaundice with pancreatic lesion ca 19-9 elevated obstructive jaundice probably, bilrubin 13, ggt elevated, appears to be metastaic ds monitor vitals monitor intake/ out put follow liver biopsy report trend LFT oncology and gastro on case continue with lactulose Tachcardia with respiratory distress decreased haemoglbin stable cxr no right side loculated effusion elevated trop i trop i elevated could be due to stress ischemia trend trop i patient has thrombocytopenia atorvastatin not given due to liver lesons with elevated bilrubin, ast, alt cradiology consult hyponatremia 133 increase na at .5 to 1meq/hr ascities could be from metastaic ds fluid elctrolyte repeat in am nutrition on clear liquid diet dvt pro: thrombocytopenia, scd gi pro; protonix po dispo: transfer to tele Visit type - Emergency Visit Emergency Visit: Yes ED Registration Date: 12/03/16 Care time: The patient presented to the Emergency Department on the above date and was hospitalized for further evaluation of their emergent condition. - New Patient This patient is new to me today: No - Critical Care Critical Care patient: Yes Total Critical Care Time (in minutes): 45 Critical Care Statement: The care of this patient involved high complexity decision making to prevent further life threatening deterioration of the patient 's condition and/or to evalute & treat vital organ system(s) failure or risk of failure.
--- NOTE | 2016-12-05 15:25 | CON.CARD ---
Consult Consult Specialty:: Cardiology Referred by:: Dr. Rhodes Reason for Consultation:: Demand ischemia - History of Present Illness Chief Complaint: Liver failure History of Present Illness: Pt is a 56 year old [place] male who presented to the ER with abnormal liver function tests, significant weight loss of 15 pounds over the last 1-2 months, RUQ and epigastric discomfort, increasing dyspnea, right loculated effusion and jaundice. CT scan revealed a lung lesion, lesions in his liver, enlarged spleen. Abdominal; US revealed multiple liver lesions, the largest 1.2 cm along with ? sludge or GB mass. The US failed to reveal biliary tract dilatation. He says that he was tested for hepatitis in [place] and it was negative. - History Source History Provided By: Patient, Medical Record Limitations to Obtaining History: Language Barrier - Past Medical History Gastrointestinal: Yes: GERD Additional Medical History: Denies - Past Surgical History Past Surgical History: Yes: Hernia Repair (inguinal) - Alcohol/Substance Use Hx Alcohol Use: No History of Substance Use: reports: None - Smoking History Smoking history: Current every day smoker Aproximately how many cigarettes per day: 6 - Social History Usual Living Arrangement: With Spouse ADL: Independent History of Recent Travel: Yes (Arrived from [place] recently) Home Medications - Allergies Allergies/Adverse Reactions: Allergies Allergy/AdvReac Type Severity Reaction Status Date / Time No Known Allergies Allergy Verified 12/03/16 09:16 - Home Medications Home Medications: Ambulatory Orders Bromezapam 6 mg PO PRN 12/03/16 Famotidine [Pepcid] 20 mg PO DAILY 12/03/16 Family Disease History - Family Disease History Other Family History: Mother had hodgkin's lymphoma Review of Systems - Review of Systems Cardiovascular: reports: Shortness of Breath Vital Signs: Vital Signs Temperature 98.4 F 12/05/16 15:02 Pulse Rate 108 H 12/05/16 15:02 Respiratory Rate 22 12/05/16 15:02 Blood Pressure 119/69 12/05/16 15:02 O2 Sat by Pulse Oximetry (%) 93 L 12/05/16 14:58 Eyes: Yes: Sclera Icterus Respiratory: Yes: Regular, Diminished, On Nasal O2 Gastrointestinal: Yes: Normal Bowel Sounds, Ascites Cardiovascular: Yes: Regular Rate and Rhythm, Tachycardia JVD: No Carotid Bruit: No Heart Sounds: Yes: S1, S2 Murmur: Yes: Systolic Murmur, Grade 1 Edema: No - Other Data Labs, Other Data: CBC, BMP 12/05/16 05:35 12/05/16 05:35 INR, PTT INR 1.25 (0.82-1.09) H 12/05/16 05:35 Fibrinogen 392.0 mg/dL (238-498) 12/04/16 06:30 Troponin, BNP 12/04/16 12/05/16 12/05/16 17:00 05:35 06:30 Troponin I 0.33 H D 3.49 H* D Cancelled Troponin, BNP 12/04/16 12/05/16 12/05/16 17:00 05:35 06:30 Troponin I 0.33 H D 3.49 H* D Cancelled ST @ 104 Imaging - Results Chest X-ray: Report Reviewed (Right effusion) Problem List - Problems (1) Aneurysm of infrarenal abdominal aorta Code(s): I71.4 - ABDOMINAL AORTIC ANEURYSM, WITHOUT RUPTURE (2) Elevated LFTs Code(s): R94.5 - ABNORMAL RESULTS OF LIVER FUNCTION STUDIES (3) Hyponatremia Code(s): E87.1 - HYPO-OSMOLALITY AND HYPONATREMIA (4) Jaundice Code(s): R17 - UNSPECIFIED JAUNDICE (5) Pleural effusion on right Code(s): J90 - PLEURAL EFFUSION, NOT ELSEWHERE CLASSIFIED (6) Thrombocytopenia Code(s): D69.6 - THROMBOCYTOPENIA, UNSPECIFIED (7) Demand ischemia Code(s): I24.8 - OTHER FORMS OF ACUTE ISCHEMIC HEART DISEASE Assessment/Plan 1. Liver decompensation: suspect to be secondary to metastatic liver disease / tumor burden as opposed to biliary obstruction with elevated tumor markers 2. CAD post demand ischemic injury 3. Thrombocytopenia 4. Moderate right effusion 5. Hyponatremia P:1. F/u liver biopsy and d/c Lipitor, continue diuretics and Lactulose 2. Echo to assess RVSP 3. Start Nadolol to decrease portal pressures, not ideal antiplatelet candidate due to thrombocytopenia requiring plt tansfusion 4. Trops have peaked 5. Thank you for consultative opportunity
[2016-12-05] MEDS: morphine CARPU-JECT 4 MG/1 ML DISP.SYRIN IVPUSH PRN ×2 (15:27→20:21)
--- NOTE | 2016-12-05 16:26 | PN ---
GI Progress Note Subjective: GI NOte: Lethargic but arousable. Denies abdominal pain but does c/o constipation. - Objective Vital Signs: Vital Signs Temperature 98.4 F 12/05/16 15:02 Pulse Rate 108 H 12/05/16 15:02 Respiratory Rate 22 12/05/16 15:02 Blood Pressure 119/69 12/05/16 15:02 O2 Sat by Pulse Oximetry (%) 93 L 12/05/16 14:58 CBC,CMP WBC 9.6 K/mm3 (4.0-10.0) 12/05/16 05:35 RBC 3.82 M/mm3 (4.00-5.60) L 12/05/16 05:35 Hgb 11.2 GM/dL (11.7-16.9) L 12/05/16 05:35 Hct 32.2 % (35.4-49) L 12/05/16 05:35 MCV 84.3 fl (80-96) 12/05/16 05:35 MCHC 34.9 g/dl (32.0-35.9) 12/05/16 05:35 RDW 15.7 % (11.9-15.9) 12/05/16 05:35 Plt Count 58 K/MM3 (134-434) L 12/05/16 05:35 MPV 7.1 fl (7.5-11.1) L 12/05/16 05:35 Neutrophils % 63.0 % (42.8-82.8) 12/05/16 05:35 Lymphocytes % 18.0 % (8-40) 12/05/16 05:35 Monocytes % 7.0 % (3.8-10.2) 12/05/16 05:35 Eosinophils % 1.0 % (0-4.5) 12/05/16 05:35 Basophils % 1.0 % (0-2.0) 12/04/16 12:50 Band Neutrophils 7.0 % (0-10) 12/05/16 05:35 Metamyelocytes 2 % (0-2) D 12/05/16 05:35 Myelocytes 2 % (0-2) 12/05/16 05:35 Promyelocytes 1 (0-1) 12/04/16 06:30 Nucleated RBCs 4 % (0-0) H 12/04/16 12:50 Differential Comment Manual diff done 12/04/16 17:00 Reactive Lymphocytes 1 % (0-80) 12/04/16 17:00 Platelet Estimate Slt decreased (NORMAL) 12/04/16 17:00 Platelet Comment No clumping noted 12/05/16 05:35 Platelet Comment Moderate decrease 12/05/16 05:35 Morphology Comment Slide scanned 12/04/16 17:00 Sodium 133 mmol/L (136-145) L 12/05/16 05:35 Potassium 3.8 mmol/L (3.5-5.1) 12/05/16 05:35 Chloride 94 mmol/L (98-107) L 12/05/16 05:35 Carbon Dioxide 28 mmol/L (21-32) 12/05/16 05:35 Anion Gap 11 (8-16) 12/05/16 05:35 BUN 17 mg/dL (7-18) 12/05/16 05:35 Creatinine 0.6 mg/dL (0.7-1.3) L 12/05/16 05:35 Creat Clearance w eGFR > 60 (>60) 12/05/16 05:35 Random Glucose 112 mg/dL (74-106) H 12/05/16 05:35 Serum Osmolality 269 mosm/kg (278-305) L 12/04/16 06:30 Lactic Acid 1.516 mmol/L (0.4-2.0) 12/03/16 09:20 Calcium 9.0 mg/dL (8.5-10.1) 12/05/16 05:35 Phosphorus 0.6 mg/dL (2.5-4.9) L* 12/05/16 05:35 Magnesium 2.1 mg/dL (1.8-2.4) 12/05/16 05:35 Total Bilirubin 16.3 mg/dL (0.2-1.0) H* D 12/05/16 05:35 Direct Bilirubin 8.2 mg/dL (0.0-0.2) H 12/03/16 09:20 GGT 2079 U/L (5-85) H 12/04/16 06:30 AST 257 U/L (15-37) H 12/05/16 05:35 ALT 181 U/L (12-78) H 12/05/16 05:35 Alkaline Phosphatase 357 U/L (45-117) H 12/05/16 05:35 Creatine Kinase 187 IU/L (39-308) D 12/04/16 17:00 Creatine Kinase Index 0.5 % (0.0-5.0) 12/03/16 09:20 CK-MB (CK-2) 3.506 ng/ml (0.5-3.6) 12/04/16 17:00 CK-MB (CK-2) Rel Index Cancelled 12/03/16 09:20 Troponin I 2.42 ng/ml (0.00-0.05) H* D 12/05/16 14:15 Total Protein 5.5 g/dl (6.4-8.2) L 12/05/16 05:35 Albumin 2.3 g/dl (3.4-5.0) L 12/05/16 05:35 Lipase 1438 U/L (73-393) H 12/03/16 09:20 Tumor Marker AFP 4.1 ng/ml (0.0-8.3) 12/04/16 06:30 Carcinoembryonic Ag 265.4 ng/mL (0.0-4.7) H 12/04/16 06:30 CA 19-9 Antigen 1234 U/mL (0-35) H 12/04/16 06:30 TSH 0.83 uIU/ml (0.358-3.74) 12/04/16 06:30 Constitutional: Other (Lethargic but arousable and conversant) Gastrointestinal Inspection: Yes: Distention ...Auscultate: Yes: Normoactive Bowel Sounds ...Palpate: Yes: Soft, Other (nontender) Labs: CBC, BMP 12/05/16 05:35 12/05/16 05:35 INR, PTT INR 1.25 (0.82-1.09) H 12/05/16 05:35 Fibrinogen 392.0 mg/dL (238-498) 12/04/16 06:30 - ....Imaging Cat Scan: Image Reviewed Ultrasound: Report Reviewed MRI: Image Reviewed Assessment/Plan Rapidly progressing liver failure and hepatic encephalopathy. Rifaxin added to lactulose. Although CT and Ca19.9 and lipase suggest a pancreatic malignancy I would have expected obstructive jaundice. This jaundice is due to liver failure , most likely due to extensive infiltration by metastatic tumor rather than cirrhosis. 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 I have discussed the situation with his son and his niece who is an RN in our ER. I explained that he is in danger of lapsing into imminent hepatic coma that could lead to respiratory failure and the need for life support. They inform me that this son is the health care proxy. The and a daughter are due to arrive from [place]. I explained that a very advanced tumor with a very poor prognosis is suspected at this point. I will advance the diet.
[2016-12-05] MEDS: FUROSEMIDE 40 MG TABLET (FP) PO SCH (16:49)
[2016-12-05] MEDS: NADOLOL 20 MG TABLET (FP) PO SCH (16:49)
[2016-12-05] MEDS: NAPH,MB-DB/K PH,MBDB POWDER PACKET PO SCH (22:19)
[2016-12-05] MEDS: LACTULOSE 20 GM/30 ML UDC (FOR ORAL USE ONLY) PO SCH (22:19)
[2016-12-05] MEDS: RIFAXIMIN 550 MG TABLET (UD) PO SCH (22:19)
[2016-12-06] MEDS: morphine CARPU-JECT 4 MG/1 ML DISP.SYRIN IVPUSH PRN ×4 (03:51→18:40)
[2016-12-06] MEDS: NAPH,MB-DB/K PH,MBDB POWDER PACKET PO SCH (06:46)
[2016-12-06] MEDS: LACTULOSE 20 GM/30 ML UDC (FOR ORAL USE ONLY) PO SCH ×4 (06:46→22:02)
[2016-12-06 07:50] LABS: BASOPHIL 0.9 % (0-2.0); EOSINOPHIL 0.6 % (0-4.5); MCH 29.4 pg (25.7-33.7); MCHC 34.7 g/dl (32.0-35.9); MEAN CELL VOLUME 84.7 fl (80-96); NEUTROPHILS 71.4 % (42.8-82.8); WHITE BLOOD COUNT 9.8 K/mm3 (4.0-10.0)
[2016-12-06 07:56] LABS: INR 1.29 (0.82-1.09); PROTHROMBIN TIME (PATIENT) 14.3 SEC (9.98-11.88)
[2016-12-06 08:30] LABS: PLATELET COUNT 36 K/MM3 (134-434)
[2016-12-06 09:08] LABS: ALBUMIN 2.1 g/dl (3.4-5.0); ALK PHOS 396 U/L (45-117); ANION GAP 12 (8-16); BILIRUBIN,TOTAL 20.2 mg/dL (0.2-1.0); CO2 28 mmol/L (21-32); COCKROFT - GAULT 154.97; CREATININE 0.7 mg/dL (0.7-1.3); GLUCOSE,RANDOM 108 mg/dL (74-106); SGPT/ALT 180 U/L (12-78)
[2016-12-06 09:26] LABS: TOT PROT 5.2 g/dl (6.4-8.2)
[2016-12-06 09:27] LABS: SGOT/AST 286 U/L (15-37)
[2016-12-06] MEDS: RIFAXIMIN 550 MG TABLET (UD) PO SCH ×2 (09:51→21:59)
[2016-12-06] MEDS: MULTIVITAMINS (DAILY MVI) TABLET (FP) PO SCH (09:51)
[2016-12-06] MEDS: SPIRONOLACTONE 25 MG TABLET (FP) PO SCH (09:51)
[2016-12-06] MEDS: FUROSEMIDE 40 MG TABLET (FP) PO SCH (09:51)
[2016-12-06] MEDS: NADOLOL 20 MG TABLET (FP) PO SCH (09:51)
[2016-12-06] MEDS: PANTOPRAZOLE 40 MG TABLET (FP) PO SCH (09:52)
[2016-12-06] MEDS: NICOTINE 14 MG/24 HOURS TOPICAL PATCH TD SCH (09:52)
[2016-12-06] MEDS ORDERED: LACTULOSE 20 GM/30 ML UDC (FOR ORAL USE ONLY) PO SCH (10:00)
--- NOTE | 2016-12-06 10:45 | PN ---
Progress Note (short form) - Note Progress Note: PULMONARY CHART REVIEWED APPEARS ILL/JAUNDICED/DEHYDRATED DIMINISHED PO INTAKE FEBRILE 90/60 ICTERIC DIMINISHED BREATH SOUNDS RIGHT BASE EXTENDING UP 1/2 S1S2 BS+ SOFT LOWER EXT EDEMA LABS/MEDS/NOTES/IMAGING REVIEWED LUNG LESION/LOCULATED PLEURAL FLUID HEPATIC HYPODENSITIES/HEPATOSPLENOMEGALY/ENLARGED PANCREATIC HEAD GI EVAL REVIEWED LOCULATED PLEURAL FLUID COULD REPRESENT HEMOTHORAX GIVEN LOW PLT COUNT/ PYOTHORAX CAN ALSO BE CONSIDERED GIVEN THE THICKNESS OF THE PLEURA AND THE INCREASED HOUNSFIELD UNITS MEASURED IDEALLY SHOULD HAVE A THORACENTESIS TO DETERMINE WETHER DRAINAGE IS NEEDED IN THIS PATIENT THROMBOCYTOPENIA WILL BE A COMPLICATING FACTOR AND LIKELY PROLONGED BLEEDING TIME CONSIDER IV FLUIDS WILL DISCUSS WITH PRIMARY TEAM Sanya JONES MD
--- NOTE | 2016-12-06 11:43 | PN ---
GI Progress Note Subjective: GI NOte: Appears more alert. Had diarrhea with the lactulose so will decrease to BID.Jaundice is worsening and is evidence of progressive liver failure. He could become hypoglycemic as the liver failure progresses. His has arrived from [place] and is present with the son. They are anticipating thoracentesis. - Objective Vital Signs: Vital Signs Temperature 97.9 F 12/06/16 05:00 Pulse Rate 88 12/06/16 05:00 Respiratory Rate 18 12/06/16 05:00 Blood Pressure 94/61 12/06/16 05:00 O2 Sat by Pulse Oximetry (%) 95 12/05/16 20:59 CBC,CMP WBC 9.8 K/mm3 (4.0-10.0) 12/06/16 05:35 RBC 3.70 M/mm3 (4.00-5.60) L 12/06/16 05:35 Hgb 10.9 GM/dL (11.7-16.9) L 12/06/16 05:35 Hct 31.3 % (35.4-49) L 12/06/16 05:35 MCV 84.7 fl (80-96) 12/06/16 05:35 MCHC 34.7 g/dl (32.0-35.9) 12/06/16 05:35 RDW 16.0 % (11.9-15.9) H 12/06/16 05:35 Plt Count 36 K/MM3 (134-434) L* D 12/06/16 05:35 MPV 7.0 fl (7.5-11.1) L 12/06/16 05:35 Neutrophils % 71.4 % (42.8-82.8) 12/06/16 05:35 Lymphocytes % 18.8 % (8-40) 12/06/16 05:35 Monocytes % 8.3 % (3.8-10.2) 12/06/16 05:35 Eosinophils % 0.6 % (0-4.5) 12/06/16 05:35 Basophils % 0.9 % (0-2.0) 12/06/16 05:35 Band Neutrophils 7.0 % (0-10) 12/05/16 05:35 Metamyelocytes 2 % (0-2) D 12/05/16 05:35 Myelocytes 2 % (0-2) 12/05/16 05:35 Promyelocytes 1 (0-1) 12/04/16 06:30 Nucleated RBCs 4 % (0-0) H 12/04/16 12:50 Differential Comment Manual diff done 12/04/16 17:00 Reactive Lymphocytes 1 % (0-80) 12/04/16 17:00 Platelet Estimate Slt decreased (NORMAL) 12/04/16 17:00 Platelet Comment No clumping noted 12/05/16 05:35 Platelet Comment Moderate decrease 12/05/16 05:35 Morphology Comment Slide scanned 12/04/16 17:00 Sodium 134 mmol/L (136-145) L 12/06/16 05:35 Potassium 4.1 mmol/L (3.5-5.1) 12/06/16 05:35 Chloride 94 mmol/L (98-107) L 12/06/16 05:35 Carbon Dioxide 28 mmol/L (21-32) 12/06/16 05:35 Anion Gap 12 (8-16) 12/06/16 05:35 BUN 28 mg/dL (7-18) H D 12/06/16 05:35 Creatinine 0.7 mg/dL (0.7-1.3) 12/06/16 05:35 Creat Clearance w eGFR > 60 (>60) 12/06/16 05:35 POC Glucometer 138.07219 UNITS (()) 12/05/16 05:58 Random Glucose 108 mg/dL (74-106) H 12/06/16 05:35 Serum Osmolality 269 mosm/kg (278-305) L 12/04/16 06:30 Lactic Acid 1.516 mmol/L (0.4-2.0) 12/03/16 09:20 Calcium 9.0 mg/dL (8.5-10.1) 12/06/16 05:35 Phosphorus 0.6 mg/dL (2.5-4.9) L* 12/05/16 05:35 Magnesium 2.1 mg/dL (1.8-2.4) 12/05/16 05:35 Ferritin Cancelled 12/06/16 05:35 Total Bilirubin 20.2 mg/dL (0.2-1.0) H* D 12/06/16 05:35 Direct Bilirubin 16.0 mg/dL (0.0-0.2) H* 12/06/16 05:35 GGT 2079 U/L (5-85) H 12/04/16 06:30 AST 286 U/L (15-37) H 12/06/16 05:35 ALT 180 U/L (12-78) H 12/06/16 05:35 Alkaline Phosphatase 396 U/L (45-117) H 12/06/16 05:35 Creatine Kinase 187 IU/L (39-308) D 12/04/16 17:00 Creatine Kinase Index 0.5 % (0.0-5.0) 12/03/16 09:20 CK-MB (CK-2) 3.506 ng/ml (0.5-3.6) 12/04/16 17:00 CK-MB (CK-2) Rel Index Cancelled 12/03/16 09:20 Troponin I 2.42 ng/ml (0.00-0.05) H* D 12/05/16 14:15 Total Protein 5.2 g/dl (6.4-8.2) L 12/06/16 05:35 Albumin 2.1 g/dl (3.4-5.0) L 12/06/16 05:35 Lipase 1438 U/L (73-393) H 12/03/16 09:20 Tumor Marker AFP 4.1 ng/ml (0.0-8.3) 12/04/16 06:30 Carcinoembryonic Ag 265.4 ng/mL (0.0-4.7) H 12/04/16 06:30 CA 19-9 Antigen 1234 U/mL (0-35) H 12/04/16 06:30 TSH 0.83 uIU/ml (0.358-3.74) 12/04/16 06:30 Constitutional: Other (lethargic but more conversant) Gastrointestinal Inspection: Yes: Distention ...Auscultate: Yes: Normoactive Bowel Sounds ...Palpate: Yes: Soft, Other (nontender) Labs: CBC, BMP 12/06/16 05:35 12/06/16 05:35 INR, PTT INR 1.29 (0.82-1.09) H 12/06/16 05:35 Fibrinogen 392.0 mg/dL (238-498) 12/04/16 06:30 Laboratory Tests 12/06/16 12/06/16 12/06/16 05:35 05:35 05:35 Plt Count 36 L* D Total Bilirubin 20.2 H* D Direct Bilirubin 16.0 H* Ammonia Pending Assessment/Plan Hepatic encephalopathy and jaundice due to liver failure felt to be due to tumor destruction of the liver. Continue to suspect lung primary. Await path. Thoracentesis cytology may prove to be diagnostic. Will need platelet transfusion for thoracentesis. Prognosis is grim.
[2016-12-06] MEDS ORDERED: PHYTONADIONE 10 MG/1 ML AMP IVPB ONE (12:35)
[2016-12-06 14:09] LABS: HEP B SURFACE AB Non Reactive (.)
--- NOTE | 2016-12-06 14:19 | PN ---
Progress Note (short form) - Note Progress Note: RENAL/MEDICINE Pt is awake and alert sitting in chair bent forward Last Vital Signs Temp Pulse Resp BP Pulse Ox 97.9 F 89 20 104/72 95 12/06/16 05:00 12/06/16 11:00 12/06/16 11:00 12/06/16 11:00 12/06/16 10:00 lungs decreased breath sounds on right , slight wheezing in left cvs s1s2 rr abd soft ext +edema skin and sclera icteric CBC, BMP 12/06/16 05:35 12/06/16 05:35 Current Medications Generic Name Dose Route Start Last Admin Trade Name Freq PRN Reason Stop Dose Admin Albuterol/Ipratropium 1 amp 12/05/16 14:38 12/05/16 22:20 Duoneb - NEB 1 amp Q6H PRN Administration SHORTNESS OF BREATH Furosemide 40 mg 12/05/16 16:15 12/06/16 09:51 Lasix - PO 40 mg DAILY NIK Administration Lactulose 20 gm 12/06/16 22:00 Cephulac (Oral Use) PO BID [facility] Morphine Sulfate 4 mg 12/05/16 15:02 12/06/16 09:46 Morphine Injection - IVPUSH 4 mg Q3H PRN Administration PAIN Multivitamins/Minerals/Vitamin C 1 tab 12/06/16 10:00 12/06/16 09:51 Tab-A-Vit - PO 1 tab DAILY NIK Administration Nadolol 20 mg 12/05/16 16:15 12/06/16 09:51 Corgard - PO 20 mg DAILY NIK Administration Nicotine 14 mg 12/06/16 10:00 12/06/16 09:52 Nicoderm Patch - TD Not Given DAILY NIK Pantoprazole Sodium 40 mg 12/06/16 10:00 12/06/16 09:52 Protonix - PO 40 mg DAILY NIK Administration Rifaximin 550 mg 12/05/16 22:00 12/06/16 09:51 Xifaxan - PO 550 mg BID NIK Administration Spironolactone 25 mg 12/06/16 10:00 12/06/16 09:51 Aldactone - PO 25 mg DAILY NIK Administration Impression 1. right lung mass 2. liver lesions 3. hepatosplenomegaly 4. transaminitis 5. jaundice 6. GERD 7. smoking history 8. abdominal aortic aneurysm 9. thrombocytopenia 10. hyponatremia 11. unintentional weight loss 12. mild ascites 13. elevated troponin 14 large pleural effusion Plan - follow up biopsy results - will monitor on tele - overall prognosis is poor - would favor a thoracentesis. Agree with pulmonary. -continue diuretics MV
--- NOTE | 2016-12-06 16:28 | EKG ---
Test Reason : Blood Pressure : / mmHG Vent. Rate : 104 BPM Atrial Rate : 104 BPM P-R Int : 124 ms QRS Dur : 094 ms QT Int : 346 ms P-R-T Axes : 044 020 027 degrees QTc Int : 454 ms SINUS TACHYCARDIA NONSPECIFIC ST ABNORMALITY ABNORMAL ECG WHEN COMPARED WITH ECG OF 04-DEC-2016 17:44, NO SIGNIFICANT CHANGE WAS FOUND Confirmed by MICHA MONSALVE MD ([id number]) on 12/06/2016 4:27:48 PM Referred By: DEANDRA ELLIS Confirmed By:MICHA MONSALVE MD
[2016-12-06 17:15] LABS: FERRITIN 2808.732 ng/ml (16.4-293.9)
--- NOTE | 2016-12-06 17:58 | PN ---
Progress Note, Physician History of Present Illness: OOB to chair. Await right thoracentesis with plt infusion. - Current Medication List Current Medications: Active Medications Albuterol/Ipratropium (Duoneb -) 1 amp NEB Q6H PRN PRN Reason: SHORTNESS OF BREATH Last Admin: 12/05/16 22:20 Dose: 1 amp Furosemide (Lasix -) 40 mg PO DAILY [facility] Last Admin: 12/06/16 09:51 Dose: 40 mg Lactulose (Cephulac (Oral Use)) 20 gm PO BID [facility] Morphine Sulfate (Morphine Injection -) 4 mg IVPUSH Q3H PRN PRN Reason: PAIN Last Admin: 12/06/16 15:29 Dose: 2 mg Multivitamins/Minerals/Vitamin C (Tab-A-Vit -) 1 tab PO DAILY [facility] Last Admin: 12/06/16 09:51 Dose: 1 tab Nadolol (Corgard -) 20 mg PO DAILY [facility] Last Admin: 12/06/16 09:51 Dose: 20 mg Nicotine (Nicoderm Patch -) 14 mg TD DAILY [facility] Last Admin: 12/06/16 09:52 Dose: Not Given Pantoprazole Sodium (Protonix -) 40 mg PO DAILY [facility] Last Admin: 12/06/16 09:52 Dose: 40 mg Rifaximin (Xifaxan -) 550 mg PO BID [facility] Last Admin: 12/06/16 09:51 Dose: 550 mg Spironolactone (Aldactone -) 25 mg PO DAILY [facility] Last Admin: 12/06/16 09:51 Dose: 25 mg - Objective Vital Signs: Vital Signs Temperature 97.5 F L 12/06/16 15:43 Pulse Rate 94 H 12/06/16 15:43 Respiratory Rate 20 12/06/16 15:43 Blood Pressure 100/61 12/06/16 15:43 O2 Sat by Pulse Oximetry (%) 95 12/06/16 10:00 Constitutional: Yes: No Distress, Calm Neck: Yes: Supple Cardiovascular: Yes: Regular Rate and Rhythm Respiratory: Yes: Regular, Diminished Gastrointestinal: Yes: Normal Bowel Sounds, Soft Edema: Yes Edema: LLE: Trace, RLE: Trace Labs: CBC, BMP 12/06/16 05:35 12/06/16 05:35 INR, PTT INR 1.29 (0.82-1.09) H 12/06/16 05:35 Fibrinogen 392.0 mg/dL (238-498) 12/04/16 06:30 - ....Imaging Chest X-ray: Report Reviewed (Persistent right effusion) Problem List - Problems (1) Aneurysm of infrarenal abdominal aorta Code(s): I71.4 - ABDOMINAL AORTIC ANEURYSM, WITHOUT RUPTURE (2) Elevated LFTs Code(s): R94.5 - ABNORMAL RESULTS OF LIVER FUNCTION STUDIES (3) Hyponatremia Code(s): E87.1 - HYPO-OSMOLALITY AND HYPONATREMIA (4) Jaundice Code(s): R17 - UNSPECIFIED JAUNDICE (5) Pleural effusion on right Code(s): J90 - PLEURAL EFFUSION, NOT ELSEWHERE CLASSIFIED (6) Thrombocytopenia Code(s): D69.6 - THROMBOCYTOPENIA, UNSPECIFIED (7) Demand ischemia Code(s): I24.8 - OTHER FORMS OF ACUTE ISCHEMIC HEART DISEASE Assessment/Plan 1. Liver decompensation secondary to metastatic liver disease and tumor destruction with elevated tumor markers, suspect lung primary 2. CAD post demand ischemic injury 3. Thrombocytopenia 4. Moderate right effusion with right lung mass 5. Hyponatremia P:1. F/u liver biopsy and d/c Lipitor, continue rifaximin and Lactulose 2. Echo to assess RVSP 3. Continue Nadolol 20 qd, Lasix 40 qd, Aldactone 25 qd, not ideal antiplatelet candidate due to thrombocytopenia requiring plt tansfusion 4. Trops have peaked, plan for thoracentesis with plt infusion
[2016-12-06] MEDS ORDERED: morphine CARPU-JECT 2 MG/1 ML DISP.SYRIN ONE (20:04)
[2016-12-06] MEDS ORDERED: morphine CARPU-JECT 2 MG/1 ML DISP.SYRIN IVPUSH ONE (20:15)
[2016-12-06] MEDS ORDERED: ATORVASTATIN CA 80 MG TABLET (FP) PO SCH (22:00)
[2016-12-07] MEDS: morphine CARPU-JECT 4 MG/1 ML DISP.SYRIN IVPUSH PRN ×3 (00:10→13:52)
[2016-12-07 08:14] LABS: INR 1.31 (0.82-1.09); PROTHROMBIN TIME (PATIENT) 14.5 SEC (9.98-11.88)
[2016-12-07 08:24] LABS: MCH 29.9 pg (25.7-33.7); MCHC 35.3 g/dl (32.0-35.9); MEAN CELL VOLUME 84.7 fl (80-96); RDW 16.3 % (11.9-15.9); WHITE BLOOD COUNT 10.1 K/mm3 (4.0-10.0)
[2016-12-07 08:35] LABS: PLATELET COUNT 26 K/MM3 (134-434)
[2016-12-07 08:43] LABS: ALBUMIN 2.3 g/dl (3.4-5.0); CALCIUM 9.9 mg/dL (8.5-10.1); COCKROFT - GAULT 108.48
[2016-12-07 08:55] LABS: BILIRUBIN,TOTAL 26.4 mg/dL (0.2-1.0)
[2016-12-07 09:22] LABS: BILIRUBIN,DIRECT 22.5 mg/dL (0.0-0.2); TOT PROT 5.6 g/dl (6.4-8.2)
[2016-12-07] MEDS ORDERED: PT OWN MED DRAWER 7, Y5N ONE (10:08)
[2016-12-07] MEDS: RIFAXIMIN 550 MG TABLET (UD) PO SCH ×2 (10:10→21:58)
[2016-12-07] MEDS: FUROSEMIDE 40 MG TABLET (FP) PO SCH (10:11)
[2016-12-07] MEDS: NADOLOL 20 MG TABLET (FP) PO SCH (10:11)
[2016-12-07] MEDS: SPIRONOLACTONE 25 MG TABLET (FP) PO SCH (10:11)
[2016-12-07] MEDS: PANTOPRAZOLE 40 MG TABLET (FP) PO SCH (10:11)
[2016-12-07] MEDS: LACTULOSE 20 GM/30 ML UDC (FOR ORAL USE ONLY) PO SCH ×2 (10:11→23:17)
[2016-12-07] MEDS: MULTIVITAMINS (DAILY MVI) TABLET (FP) PO SCH (10:11)
[2016-12-07] MEDS: NICOTINE 14 MG/24 HOURS TOPICAL PATCH TD SCH (10:18)
--- NOTE | 2016-12-07 10:31 | PN ---
Progress Note (short form) - Note Progress Note: PULMONARY CHART REVIEWED APPEARS ILL/JAUNDICED/DEHYDRATED DIMINISHED PO INTAKE/OOB TO CHAIR AFEBRILE 99/46 ICTERIC DIMINISHED BREATH SOUNDS RIGHT BASE EXTENDING UP 1/2 S1S2 BS+ SOFT LOWER EXT EDEMA LABS/MEDS/NOTES/IMAGING REVIEWED LUNG LESION/LOCULATED PLEURAL FLUID HEPATIC HYPODENSITIES/HEPATOSPLENOMEGALY/ENLARGED PANCREATIC HEAD LOCULATED PLEURAL FLUID COULD REPRESENT HEMOTHORAX GIVEN LOW PLT COUNT/ PYOTHORAX CAN ALSO BE CONSIDERED GIVEN THE THICKNESS OF THE PLEURA AND THE INCREASED [place] UNITS MEASURED IDEALLY SHOULD HAVE A THORACENTESIS TO DETERMINE WETHER DRAINAGE IS NEEDED IN THIS PATIENT THROMBOCYTOPENIA WILL BE A COMPLICATING FACTOR AND LIKELY PROLONGED BLEEDING TIME PLEASE CONSIDER IV FLUIDS WILL DISCUSS WITH PRIMARY TEAM Sanya JONES MD
--- NOTE | 2016-12-07 10:39 | PN ---
Progress Note, Physician History of Present Illness: OOB to chair. Await right thoracentesis with plt infusion. - Current Medication List Current Medications: Active Medications Albuterol/Ipratropium (Duoneb -) 1 amp NEB Q6H PRN PRN Reason: SHORTNESS OF BREATH Last Admin: 12/05/16 22:20 Dose: 1 amp Furosemide (Lasix -) 40 mg PO DAILY [facility] Last Admin: 12/07/16 10:11 Dose: 40 mg Lactulose (Cephulac (Oral Use)) 20 gm PO BID [facility] Last Admin: 12/07/16 10:11 Dose: 20 gm Morphine Sulfate (Morphine Injection -) 4 mg IVPUSH Q3H PRN PRN Reason: PAIN Last Admin: 12/07/16 05:50 Dose: 4 mg Multivitamins/Minerals/Vitamin C (Tab-A-Vit -) 1 tab PO DAILY [facility] Last Admin: 12/07/16 10:11 Dose: 1 tab Nadolol (Corgard -) 20 mg PO DAILY [facility] Last Admin: 12/07/16 10:11 Dose: 20 mg Nicotine (Nicoderm Patch -) 14 mg TD DAILY [facility] Last Admin: 12/07/16 10:18 Dose: Not Given Pantoprazole Sodium (Protonix -) 40 mg PO DAILY [facility] Last Admin: 12/07/16 10:11 Dose: 40 mg Rifaximin (Xifaxan -) 550 mg PO BID [facility] Last Admin: 12/07/16 10:10 Dose: 550 mg Spironolactone (Aldactone -) 25 mg PO DAILY [facility] Last Admin: 12/07/16 10:11 Dose: 25 mg - Objective Vital Signs: Vital Signs Temperature 97.9 F 12/07/16 06:48 Pulse Rate 82 12/07/16 06:48 Respiratory Rate 16 12/07/16 06:48 Blood Pressure 99/46 12/07/16 06:48 O2 Sat by Pulse Oximetry (%) 97 12/06/16 21:00 Constitutional: Yes: No Distress, Calm Eyes: Yes: Sclera Icterus Neck: Yes: Supple Respiratory: Yes: Regular, Diminished, On Nasal O2 Gastrointestinal: Yes: Normal Bowel Sounds, Soft, Ascites Edema: Yes Labs: CBC, BMP 12/07/16 05:35 12/07/16 05:35 INR, PTT INR 1.31 (0.82-1.09) H 12/07/16 05:35 Fibrinogen 392.0 mg/dL (238-498) 12/04/16 06:30 - ....Imaging EKG: Report Reviewed (Tele: SR) Problem List - Problems (1) Aneurysm of infrarenal abdominal aorta Code(s): I71.4 - ABDOMINAL AORTIC ANEURYSM, WITHOUT RUPTURE (2) Elevated LFTs Code(s): R94.5 - ABNORMAL RESULTS OF LIVER FUNCTION STUDIES (3) Hyponatremia Code(s): E87.1 - HYPO-OSMOLALITY AND HYPONATREMIA (4) Jaundice Code(s): R17 - UNSPECIFIED JAUNDICE (5) Pleural effusion on right Code(s): J90 - PLEURAL EFFUSION, NOT ELSEWHERE CLASSIFIED (6) Thrombocytopenia Code(s): D69.6 - THROMBOCYTOPENIA, UNSPECIFIED (7) Demand ischemia Code(s): I24.8 - OTHER FORMS OF ACUTE ISCHEMIC HEART DISEASE Assessment/Plan 1. Liver decompensation secondary to metastatic liver disease and tumor destruction with elevated tumor markers, suspect lung primary 2. CAD post demand ischemic injury 3. Thrombocytopenia 4. Moderate right effusion with right lung mass 5. Hyponatremia P:1. F/u liver biopsy, continue rifaximin and Lactulose 2. Echo to assess RVSP 3. Continue Nadolol 20 qd, Lasix 40 qd, Aldactone 25 qd, not ideal antiplatelet candidate due to thrombocytopenia requiring plt tansfusion 4. Trops have peaked, plan for thoracentesis with plt infusion 5. D/c telemetry
--- NOTE | 2016-12-07 11:39 | PN ---
GI Progress Note Subjective: GI Note: Liver failure is progressing as expected. Amauri is conversant but according to the son he is not always lucid. Amauri has been refusing the lactulose but the son has been convincing him to take it. - Objective Vital Signs: Vital Signs Temperature 97.9 F 12/07/16 06:48 Pulse Rate 82 12/07/16 06:48 Respiratory Rate 16 12/07/16 06:48 Blood Pressure 99/46 12/07/16 06:48 O2 Sat by Pulse Oximetry (%) 97 12/06/16 21:00 Constitutional: Other (lethargic but verbally responsive) Eyes: Yes: Sclera Icterus Gastrointestinal Inspection: Yes: Distention ...Auscultate: Yes: Normoactive Bowel Sounds ...Palpate: Yes: Soft, Other (nontender) Labs: CBC, BMP 12/07/16 05:35 12/07/16 05:35 INR, PTT INR 1.31 (0.82-1.09) H 12/07/16 05:35 Fibrinogen 392.0 mg/dL (238-498) 12/04/16 06:30 Assessment/Plan Hepatic encephalopathy and jaundice due to liver failure felt to be due to tumor destruction of the liver. I again discussed that the prognosis is very grim with the son and asked that he share this with the family. I encouraged him to share this with Amauri when he asks him again. He continues to want full resuscitative measures and the thoracenstesis.
--- NOTE | 2016-12-07 12:55 | PN ---
Progress Note (short form) - Note Progress Note: RENAL/MEDICINE Pt is awake and alert sitting on chair wanted to take morphine 2 mg every 2 hours Last Vital Signs Temp Pulse Resp BP Pulse Ox 97.9 F 82 16 99/46 97 12/07/16 06:48 12/07/16 06:48 12/07/16 06:48 12/07/16 06:48 12/06/16 21:00 lungs decreased breath sounds on right , slight wheezing in left cvs s1s2 rr abd soft ext +edema skin and sclera icteric Current Medications Generic Name Dose Route Start Last Admin Trade Name Freq PRN Reason Stop Dose Admin Albuterol/Ipratropium 1 amp 12/05/16 14:38 12/05/16 22:20 Duoneb - NEB 1 amp Q6H PRN Administration SHORTNESS OF BREATH Furosemide 40 mg 12/05/16 16:15 12/07/16 10:11 Lasix - PO 40 mg DAILY [facility] Administration Lactulose 20 gm 12/06/16 22:00 12/07/16 10:11 Cephulac (Oral Use) PO 20 gm BID [facility] Administration Morphine Sulfate 4 mg 12/05/16 15:02 12/07/16 05:50 Morphine Injection - IVPUSH 4 mg Q3H PRN Administration PAIN Multivitamins/Minerals/Vitamin C 1 tab 12/06/16 10:00 12/07/16 10:11 Tab-A-Vit - PO 1 tab DAILY [facility]IK Administration Nadolol 20 mg 12/05/16 16:15 12/07/16 10:11 Corgard - PO 20 mg DAILY [facility] Administration Nicotine 14 mg 12/06/16 10:00 12/07/16 10:18 Nicoderm Patch - TD Not Given DAILY [facility] Pantoprazole Sodium 40 mg 12/06/16 10:00 12/07/16 10:11 Protonix - PO 40 mg DAILY [facility] Administration Rifaximin 550 mg 12/05/16 22:00 12/07/16 10:10 Xifaxan - PO 550 mg BID [facility]IK Administration Spironolactone 25 mg 12/06/16 10:00 12/07/16 10:11 Aldactone - PO 25 mg DAILY [facility] Administration CBC, BMP 12/07/16 05:35 12/07/16 05:35 Impression 1. right lung mass 2. liver lesions 3. hepatosplenomegaly 4. transaminitis 5. jaundice 6. GERD 7. smoking history 8. abdominal aortic aneurysm 9. thrombocytopenia 10. hyponatremia 11. unintentional weight loss 12. mild ascites 13. elevated troponin 14 large pleural effusion 15. thrombocytopenia Plan - follow up biopsy results - will monitor on tele - overall prognosis is poor - would favor a thoracentesis. Agree with pulmonary. -continue diuretics MV
[2016-12-07 14:04] LABS: METAMYELOCYTE 3 % (0-2)
[2016-12-07 14:14] LABS: ANISOCYTOSIS 1+; HYPOCHROMIA 3+
[2016-12-07 16:11] LABS: SERUM IRON 216 ug/dL (38-169); TOTAL IRON BINDING CAPACITY < 233 ug/dL (250-450); UIBC < 17 ug/dL (111-343)
[2016-12-07] MEDS: morphine CARPU-JECT 2 MG/1 ML DISP.SYRIN IVPB PRN ×2 (18:36→22:00)
[2016-12-08] MEDS: morphine CARPU-JECT 2 MG/1 ML DISP.SYRIN IVPB PRN ×7 (02:00→22:16)
--- NOTE | 2016-12-08 09:26 | PN ---
Progress Note, Physician History of Present Illness: Episodes of confusion on VM. - Current Medication List Current Medications: Active Medications Albuterol/Ipratropium (Duoneb -) 1 amp NEB Q6H PRN PRN Reason: SHORTNESS OF BREATH Last Admin: 12/05/16 22:20 Dose: 1 amp Furosemide (Lasix -) 40 mg PO DAILY [facility] Last Admin: 12/07/16 10:11 Dose: 40 mg Lactulose (Cephulac (Oral Use)) 20 gm PO BID [facility] Last Admin: 12/07/16 23:17 Dose: 20 gm Morphine Sulfate (Morphine Injection -) 2 mg IVPB Q2H PRN PRN Reason: PAIN Last Admin: 12/08/16 05:17 Dose: 2 mg Multivitamins/Minerals/Vitamin C (Tab-A-Vit -) 1 tab PO DAILY [facility] Last Admin: 12/07/16 10:11 Dose: 1 tab Nadolol (Corgard -) 20 mg PO DAILY [facility] Last Admin: 12/07/16 10:11 Dose: 20 mg Nicotine (Nicoderm Patch -) 14 mg TD DAILY [facility] Last Admin: 12/07/16 10:18 Dose: Not Given Pantoprazole Sodium (Protonix -) 40 mg PO DAILY [facility] Last Admin: 12/07/16 10:11 Dose: 40 mg Rifaximin (Xifaxan -) 550 mg PO BID [facility] Last Admin: 12/07/16 21:58 Dose: 550 mg Spironolactone (Aldactone -) 25 mg PO DAILY [facility] Last Admin: 12/07/16 10:11 Dose: 25 mg - Objective Vital Signs: Vital Signs Temperature 98.1 F 12/08/16 06:00 Pulse Rate 96 H 12/08/16 06:00 Respiratory Rate 18 12/08/16 06:00 Blood Pressure 112/60 12/08/16 06:00 O2 Sat by Pulse Oximetry (%) 92 L 12/07/16 20:48 Constitutional: Yes: No Distress, Calm Eyes: Yes: Sclera Icterus Cardiovascular: Yes: Regular Rate and Rhythm Respiratory: Yes: Regular, Diminished, On Venti-Mask Gastrointestinal: Yes: Ascites, Distention, Hypoactive Bowel Sounds Edema: Yes Edema: LLE: 1+, RLE: 1+ Labs: CBC, BMP 12/07/16 05:35 12/07/16 05:35 INR, PTT INR 1.31 (0.82-1.09) H 12/07/16 05:35 Fibrinogen 392.0 mg/dL (238-498) 12/04/16 06:30 Problem List - Problems (1) Aneurysm of infrarenal abdominal aorta Code(s): I71.4 - ABDOMINAL AORTIC ANEURYSM, WITHOUT RUPTURE (2) Elevated LFTs Code(s): R94.5 - ABNORMAL RESULTS OF LIVER FUNCTION STUDIES (3) Hyponatremia Code(s): E87.1 - HYPO-OSMOLALITY AND HYPONATREMIA (4) Jaundice Code(s): R17 - UNSPECIFIED JAUNDICE (5) Pleural effusion on right Code(s): J90 - PLEURAL EFFUSION, NOT ELSEWHERE CLASSIFIED (6) Thrombocytopenia Code(s): D69.6 - THROMBOCYTOPENIA, UNSPECIFIED (7) Demand ischemia Code(s): I24.8 - OTHER FORMS OF ACUTE ISCHEMIC HEART DISEASE Assessment/Plan 1. Progressive liver decompensation secondary to metastatic liver disease and tumor destruction with elevated tumor markers, suspect lung primary 2. CAD post demand ischemic injury 3. Thrombocytopenia 4. Moderate right effusion with right lung mass 5. Hyponatremia P:1. F/u liver biopsy, continue rifaximin and Lactulose 2. Echo to assess RVSP 3. Continue Nadolol 20 qd, Lasix 40 qd, Aldactone 25 qd, not ideal antiplatelet candidate due to thrombocytopenia requiring plt tansfusion 4. Trops have peaked, plan for thoracentesis with plt infusion 5. D/c telemetry
[2016-12-08] MEDS: LACTULOSE 20 GM/30 ML UDC (FOR ORAL USE ONLY) PO SCH ×2 (10:07→22:16)
[2016-12-08] MEDS: FUROSEMIDE 40 MG TABLET (FP) PO SCH (10:08)
[2016-12-08] MEDS: RIFAXIMIN 550 MG TABLET (UD) PO SCH ×2 (10:08→22:08)
[2016-12-08] MEDS: PANTOPRAZOLE 40 MG TABLET (FP) PO SCH (10:08)
[2016-12-08] MEDS: MULTIVITAMINS (DAILY MVI) TABLET (FP) PO SCH (10:08)
[2016-12-08] MEDS: SPIRONOLACTONE 25 MG TABLET (FP) PO SCH (10:08)
[2016-12-08] MEDS: NADOLOL 20 MG TABLET (FP) PO SCH (10:08)
[2016-12-08] MEDS: NICOTINE 14 MG/24 HOURS TOPICAL PATCH TD SCH (10:09)
--- NOTE | 2016-12-08 12:13 | PN ---
Progress Note, Physician History of Present Illness: pulmonary oob-chair,-resp distress,jaundiced - Current Medication List Current Medications: Active Medications Albuterol/Ipratropium (Duoneb -) 1 amp NEB Q6H PRN PRN Reason: SHORTNESS OF BREATH Last Admin: 12/05/16 22:20 Dose: 1 amp Furosemide (Lasix -) 40 mg PO DAILY [facility] Last Admin: 12/08/16 10:08 Dose: 40 mg Lactulose (Cephulac (Oral Use)) 20 gm PO BID [facility] Last Admin: 12/08/16 10:07 Dose: 20 gm Morphine Sulfate (Morphine Injection -) 2 mg IVPB Q2H PRN PRN Reason: PAIN Last Admin: 12/08/16 10:03 Dose: 2 mg Multivitamins/Minerals/Vitamin C (Tab-A-Vit -) 1 tab PO DAILY [facility] Last Admin: 12/08/16 10:08 Dose: 1 tab Nadolol (Corgard -) 20 mg PO DAILY [facility] Last Admin: 12/08/16 10:08 Dose: 20 mg Nicotine (Nicoderm Patch -) 14 mg TD DAILY [facility] Last Admin: 12/08/16 10:09 Dose: Not Given Pantoprazole Sodium (Protonix -) 40 mg PO DAILY [facility] Last Admin: 12/08/16 10:08 Dose: 40 mg Rifaximin (Xifaxan -) 550 mg PO BID [facility] Last Admin: 12/08/16 10:08 Dose: 550 mg Spironolactone (Aldactone -) 25 mg PO DAILY [facility] Last Admin: 12/08/16 10:08 Dose: 25 mg - Objective Vital Signs: Vital Signs Temperature 98.1 F 12/08/16 06:00 Pulse Rate 96 H 12/08/16 06:00 Respiratory Rate 18 12/08/16 06:00 Blood Pressure 112/60 12/08/16 06:00 O2 Sat by Pulse Oximetry (%) 92 L 12/07/16 20:48 Constitutional: Yes: Well Nourished, Other (lethargic,jaundiced) Eyes: Yes: WNL, Sclera Icterus HENT: Yes: WNL Neck: Yes: WNL Cardiovascular: Yes: Regular Rate and Rhythm, S1, S2 Respiratory: Yes: Diminished (poor inspiratory effort) Gastrointestinal: Yes: Normal Bowel Sounds, Soft Extremities: Yes: WNL Edema: No Labs: CBC, BMP 12/07/16 05:35 12/07/16 05:35 INR, PTT INR 1.31 (0.82-1.09) H 12/07/16 05:35 Fibrinogen 392.0 mg/dL (238-498) 12/04/16 06:30 Assessment/Plan Problem List - Problems (1) Ascites Code(s): R18.8 - OTHER ASCITES (2) Elevated LFTs Code(s): R94.5 - ABNORMAL RESULTS OF LIVER FUNCTION STUDIES (3) GERD (gastroesophageal reflux disease) Code(s): K21.9 - GASTRO-ESOPHAGEAL REFLUX DISEASE WITHOUT ESOPHAGITIS (4) Hyponatremia Code(s): E87.1 - HYPO-OSMOLALITY AND HYPONATREMIA (5) Jaundice Code(s): R17 - UNSPECIFIED JAUNDICE (6) Pleural effusion on right Code(s): J90 - PLEURAL EFFUSION, NOT ELSEWHERE CLASSIFIED (7) Smoker Code(s): F17.200 - NICOTINE DEPENDENCE, UNSPECIFIED, UNCOMPLICATED (8) Thrombocytopenia Code(s): D69.6 - THROMBOCYTOPENIA, UNSPECIFIED (9) Mass of right lung Code(s): R91.8 - OTHER NONSPECIFIC ABNORMAL FINDING OF LUNG FIELD Assessment/Plan Heme for transfusional support O2 as needed Lactulose likely metastatic CA check path defer thoracentesis secondary thrombocytopenia prognosis poor DR QUINONEZ
[2016-12-08 12:20] LABS: MCH 29.7 pg (25.7-33.7); MCHC 34.9 g/dl (32.0-35.9); MEAN CELL VOLUME 84.9 fl (80-96); MEAN PLT VOLUME 11.2 fl (7.5-11.1); RDW 16.6 % (11.9-15.9)
[2016-12-08 12:34] LABS: PLATELET COUNT 10 K/MM3 (134-434)
--- NOTE | 2016-12-08 12:34 | PATH ---
Surgical Pathology Report Patient Name: NADINE WICK [facility]. Rec. #: [id number] /Age/Gender: 1960 (Age: 56) / M Account: [id number] Location: 4 TELEMETRY U Taken: 12/04/2016 Received: 12/05/2016 Reported: 12/08/2016 Physicians: Coral Swenson Mark Norman Rosen, M.D. Smitha Mellacheruvu, M.D. 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 Comment: Immunohistochemical stains performed and interpreted at [facility] show the following: The tumor cells are positive for Ae1/Ae3 keratin in dot-like pattern, strongly positive for Synaptophysin and TTF-1 immunostains; few cells are positive for chromogranin and CK7 immunostains, CK20 is negative. The morphologic findings and the immunoprofile are of involvement by high grade neuroendocrine carcinoma, most consistent with small for carcinoma. TTF-1 positivity, while suggestive, is not specific for the lung origin of small cell carcinoma. Clinical and imaging correlations are suggested. The case was preliminary discussed with Dr. Rhodes on 12/08/16. Electronically Signed Amanuel Melissa M.D. Gross Description Received in formalin labeled "liver tissue" are 3 cullen, cylindrical portions of soft tissue ranging from 0.7-1.8 cm in length and averaging 0.1 cm in diameter. The specimens are submitted in toto in one cassette. /12/05/201612/05/2016
[2016-12-08 12:49] LABS: ANION GAP 12 (8-16); CALCIUM 10.1 mg/dL (8.5-10.1); CO2 28 mmol/L (21-32); CREATININE 1.2 mg/dL (0.7-1.3); GLUCOSE,RANDOM 114 mg/dL (74-106); SGPT/ALT 196 U/L (12-78)
[2016-12-08 12:59] LABS: ALK PHOS 495 U/L (45-117)
[2016-12-08 13:03] LABS: SGOT/AST 416 U/L (15-37)
[2016-12-08 13:05] LABS: BILIRUBIN,TOTAL 33.9 mg/dL (0.2-1.0)
[2016-12-08 13:44] LABS: METAMYELOCYTE 3 % (0-2); PLATELET ESTIMATE MARKEDLY DECREASED (NORMAL)
--- NOTE | 2016-12-08 16:34 | PN ---
Progress Note, Physician History of Present Illness: Pt seen and examined at bedside. He complains of fatigue. He has had a nosebleed since last night. - Current Medication List Current Medications: Active Medications Albuterol/Ipratropium (Duoneb -) 1 amp NEB Q6H PRN PRN Reason: SHORTNESS OF BREATH Last Admin: 12/05/16 22:20 Dose: 1 amp Furosemide (Lasix -) 40 mg PO DAILY [facility] Last Admin: 12/08/16 10:08 Dose: 40 mg Lactulose (Cephulac (Oral Use)) 20 gm PO BID [facility] Last Admin: 12/08/16 10:07 Dose: 20 gm Morphine Sulfate (Morphine Injection -) 2 mg IVPB Q2H PRN PRN Reason: PAIN Last Admin: 12/08/16 14:45 Dose: 2 mg Multivitamins/Minerals/Vitamin C (Tab-A-Vit -) 1 tab PO DAILY [facility] Last Admin: 12/08/16 10:08 Dose: 1 tab Nadolol (Corgard -) 20 mg PO DAILY [facility] Last Admin: 12/08/16 10:08 Dose: 20 mg Nicotine (Nicoderm Patch -) 14 mg TD DAILY [facility] Last Admin: 12/08/16 10:09 Dose: Not Given Pantoprazole Sodium (Protonix -) 40 mg PO DAILY [facility] Last Admin: 12/08/16 10:08 Dose: 40 mg Rifaximin (Xifaxan -) 550 mg PO BID [facility] Last Admin: 12/08/16 10:08 Dose: 550 mg Spironolactone (Aldactone -) 25 mg PO DAILY [facility] Last Admin: 12/08/16 10:08 Dose: 25 mg - Objective Vital Signs: Vital Signs Temperature 97.6 F 12/08/16 15:17 Pulse Rate 97 H 12/08/16 15:17 Respiratory Rate 18 12/08/16 15:17 Blood Pressure 97/54 12/08/16 15:17 O2 Sat by Pulse Oximetry (%) 93 L 12/08/16 10:00 Constitutional: Yes: Calm Eyes: Yes: Sclera Icterus HENT: Yes: Epistaxis Cardiovascular: Yes: S1, S2 Respiratory: Yes: On Venti-Mask Gastrointestinal: Yes: Tenderness Genitourinary: Yes: WNL Musculoskeletal: Yes: Muscle Weakness Edema: Yes Integumentary: Yes: Jaundice Neurological: Yes: Confusion Labs: CBC, BMP 12/08/16 12:05 12/08/16 12:05 INR, PTT INR 1.31 (0.82-1.09) H 12/07/16 05:35 Fibrinogen 392.0 mg/dL (238-498) 12/04/16 06:30 Problem List - Problems (1) Elevated LFTs Code(s): R94.5 - ABNORMAL RESULTS OF LIVER FUNCTION STUDIES (2) Jaundice Code(s): R17 - UNSPECIFIED JAUNDICE (3) Pleural effusion on right Code(s): J90 - PLEURAL EFFUSION, NOT ELSEWHERE CLASSIFIED (4) GERD (gastroesophageal reflux disease) Code(s): K21.9 - GASTRO-ESOPHAGEAL REFLUX DISEASE WITHOUT ESOPHAGITIS (5) Ascites Code(s): R18.8 - OTHER ASCITES (6) Hyponatremia Code(s): E87.1 - HYPO-OSMOLALITY AND HYPONATREMIA (7) Thrombocytopenia Code(s): D69.6 - THROMBOCYTOPENIA, UNSPECIFIED (8) Smoker Code(s): F17.200 - NICOTINE DEPENDENCE, UNSPECIFIED, UNCOMPLICATED Assessment/Plan Current Medications Generic Name Dose Route Start Last Admin Trade Name Freq PRN Reason Stop Dose Admin Albuterol/Ipratropium 1 amp 12/05/16 14:38 12/05/16 22:20 Duoneb - NEB 1 amp Q6H PRN Administration SHORTNESS OF BREATH Furosemide 40 mg 12/05/16 16:15 12/08/16 10:08 Lasix - PO 40 mg DAILY [facility]IK Administration Lactulose 20 gm 12/06/16 22:00 12/08/16 10:07 Cephulac (Oral Use) PO 20 gm BID [facility]IK Administration Morphine Sulfate 2 mg 12/07/16 17:53 12/08/16 14:45 Morphine Injection - IVPB 2 mg Q2H PRN Administration PAIN Multivitamins/Minerals/Vitamin C 1 tab 12/06/16 10:00 12/08/16 10:08 Tab-A-Vit - PO 1 tab DAILY [facility]IK Administration Nadolol 20 mg 12/05/16 16:15 12/08/16 10:08 Corgard - PO 20 mg DAILY [facility]IK Administration Nicotine 14 mg 12/06/16 10:00 12/08/16 10:09 Nicoderm Patch - TD Not Given DAILY [facility] Pantoprazole Sodium 40 mg 12/06/16 10:00 12/08/16 10:08 Protonix - PO 40 mg DAILY [facility] Administration Rifaximin 550 mg 12/05/16 22:00 12/08/16 10:08 Xifaxan - PO 550 mg BID [facility]IK Administration Spironolactone 25 mg 12/06/16 10:00 12/08/16 10:08 Aldactone - PO 25 mg DAILY [facility]IK Administration Impression 1. right lung mass 2. liver lesions 3. hepatosplenomegaly 4. transaminitis 5. jaundice 6. GERD 7. smoking history 8. abdominal aortic aneurysm 9. thrombocytopenia 10. hyponatremia 11. unintentional weight loss 12. mild ascites 13. elevated troponin Plan - will transfuse platelets and give lasix - discussed with family at length - prelim result of biopsy is small cell cancer - transfer process to [facility] is in progress - discussed with oncology - discussed with pulmonary today - case discussed with family at length - overall prognosis is poor Dr Rhodes
--- NOTE | 2016-12-08 16:40 | DS ---
Physical Examination Vital Signs: Vital Signs Temperature 97.6 F 12/08/16 15:17 Pulse Rate 97 H 12/08/16 15:17 Respiratory Rate 18 12/08/16 15:17 Blood Pressure 97/54 12/08/16 15:17 O2 Sat by Pulse Oximetry (%) 93 L 12/08/16 10:00 Findings/Remarks: Pt who presented with abdominal pain. CT scan showed pulmonary and liver masses. He went for biopsy and prelim report shows small cell cancer. He is also thrombocytopenic. Family are requesting transfer to [facility] for possible chemotherapy. Pt is too unstable to discharge home. Constitutional: Yes: Calm Eyes: Yes: Sclera Icterus Neck: Yes: Supple Cardiovascular: Yes: S1, S2 Respiratory: Yes: On Venti-Mask Gastrointestinal: Yes: Tenderness Musculoskeletal: Yes: Muscle Weakness Edema: Yes Integumentary: Yes: Jaundice Neurological: Yes: Confusion Labs: CBC, BMP 12/08/16 12:05 12/08/16 12:05 Discharge Summary Reason For Visit: ELEVATED LFT,PELURAL EFFUSION ON RIGHT Current Active Problems Aneurysm of infrarenal abdominal aorta (Acute) Ascites (Acute) Demand ischemia (Acute) Elevated LFTs (Acute) GERD (gastroesophageal reflux disease) (Acute) Hyponatremia (Acute) Jaundice (Acute) Mass of right lung (Acute) Pleural effusion on right (Acute) Smoker (Acute) Thrombocytopenia (Acute) Condition: Guarded - Instructions Diet, Activity, Other Instructions: regular diet Disposition: TRANSFER ACUTE CARE/OTHER HOSP - Home Medications Comprehensive Discharge Medication List: Ambulatory Orders Bromezapam 6 mg PO PRN 12/03/16 Famotidine [Pepcid] 20 mg PO DAILY 12/03/16
[2016-12-08] MEDS ORDERED: ALLOPURINOL 300 MG TABLET (FP) PO SCH (16:45)
[2016-12-08 18:45] LABS: MCH 29.4 pg (25.7-33.7); MCHC 34.8 g/dl (32.0-35.9); MEAN CELL VOLUME 84.4 fl (80-96); MEAN PLT VOLUME 8.3 fl (7.5-11.1); PLATELET COUNT 62 K/MM3 (134-434); RDW 16.4 % (11.9-15.9)
[2016-12-08 20:05] VITALS: TEMP 98
--- NOTE | 2016-12-08 20:32 | CONSULT ---
Consult Consult Specialty:: ENT Referred by:: Dr. Rhodes Reason for Consultation:: nasal bleeding - History of Present Illness Chief Complaint: nasal bleeding History of Present Illness: 56 yo M with long hx smoking developed symptoms, saw MD in [place] Xrays shows liver lesions, lung lesion came to [facility], admitted, workup shows liver mets and primary lung lesion, pathology consistent with small cell carcinoma. rapidly progressive clinical decline, was fully active ~2 weeks ago. now in distress devleoped nasal bleeding yesterday and today, no hx prior nosebleeds or other nasal problems (trauma, allergy, infections, etc) significant thrombocytopenia noted, platelet transfusions given - History Source History Provided By: Family Member, Medical Record Limitations to Obtaining History: Clinical Condition - Past Medical History Pulmonary: Yes: Cancer, O2 Dependent Gastrointestinal: Yes: GERD Heme/Onc: Yes: Bleeding Disorder, Thrombocytopenia Additional Medical History: Denies - Past Surgical History Past Surgical History: Yes: Hernia Repair (inguinal) - Alcohol/Substance Use Hx Alcohol Use: No History of Substance Use: reports: None - Smoking History Smoking history: Current every day smoker Aproximately how many cigarettes per day: 6 - Social History Usual Living Arrangement: With Spouse ADL: Independent History of Recent Travel: Yes (Arrived from [place] recently) Home Medications - Allergies Allergies/Adverse Reactions: Allergies Allergy/AdvReac Type Severity Reaction Status Date / Time No Known Allergies Allergy Verified 12/03/16 09:16 - Home Medications Home Medications: Ambulatory Orders Bromezapam 6 mg PO PRN 12/03/16 Famotidine [Pepcid] 20 mg PO DAILY 12/03/16 Family Disease History - Family Disease History Family Disease History: Other: Son (alive and well) Other Family History: Mother had hodgkin's lymphoma Physical Exam Vital Signs: Vital Signs Temperature 98.0 F 12/08/16 17:00 Pulse Rate 95 H 12/08/16 17:00 Respiratory Rate 18 12/08/16 17:00 Blood Pressure 93/46 12/08/16 17:00 O2 Sat by Pulse Oximetry (%) 93 L 12/08/16 10:00 Constitutional: Yes: Mild Distress Eyes: Yes: Sclera Icterus HENT: Yes: WNL (nose: dry blood bilateral nasal cavities, some moist clot right nasal cavity, NO active bleeding oral cavity and pharynx sl dry, no bleeding seen.) Integumentary: Yes: Jaundice Labs: CBC, BMP 12/08/16 18:00 12/08/16 12:05 Imaging - Results Chest X-ray: Report Reviewed Cat Scan: Report Reviewed Problem List - Problems (1) Epistaxis Assessment/Plan: epistaxis right nose since yesterday suspect thrombocytopenia and coagulopathy from hepatic dysfunction primarily responsible ?dryness from oxygen no prior epistaxis or nasal pathology per family. no active bleeding but sig dry blood in nasal cavities. Because of risk of bleeding will not disturb the clots and dry blood present, aggressive suctioning and removal likely to create more bleeding than present now. cotton balls placed in nostrils continue to monitor platelet count and transfusions as per Hematology Thank you for consultation, Phillip Hernandez MD Code(s): R04.0 - EPISTAXIS
--- NOTE | 2016-12-08 22:13 | PN ---
Progress Note (short form) - Note Progress Note: Patient seen and examined worsening liver function/jaundice Last Vital Signs Temp Pulse Resp BP Pulse Ox 98.0 F 101 H 24 92/48 95 12/08/16 17:00 12/09/16 02:00 12/09/16 02:00 12/09/16 02:00 12/08/16 21:00 Jaundiced Cor: RSR, No murmurs, No gallops Lungs: Clear to P&A Abd: Soft, Normal bowel sounds, ascites+, hepatomegaly+ Ext:1+ edema Abnormal Lab Results 12/08/16 12/08/16 12/08/16 12:05 12:05 18:00 RBC 3.28 L 2.96 L Hgb 9.7 L D 8.7 L D Hct 27.8 L 24.9 L RDW 16.6 H 16.4 H Plt Count 10 L* D 62 L D MPV 11.2 H D Metamyelocytes 3 H Nucleated RBCs 3 H Sodium 135 L Chloride 95 L BUN 48 H D Random Glucose 114 H Total Bilirubin 33.9 H* D AST 416 H ALT 196 H Alkaline Phosphatase 495 H Total Protein 5.0 L Albumin 2.0 L Active Medications Generic Name Dose Route Start Last Admin Trade Name Freq PRN Reason Stop Dose Admin Albuterol/Ipratropium 1 amp 12/05/16 14:38 12/05/16 22:20 Duoneb - NEB 1 amp Q6H PRN Administration SHORTNESS OF BREATH Allopurinol 300 mg 12/08/16 16:45 12/08/16 16:55 Zyloprim - PO 300 mg DAILY NIK Administration Furosemide 40 mg 12/05/16 16:15 12/08/16 10:08 Lasix - PO 40 mg DAILY NIK Administration Lactulose 20 gm 12/06/16 22:00 12/08/16 22:16 Cephulac (Oral Use) PO 20 gm BID NIK Administration Morphine Sulfate 2 mg 12/07/16 17:53 12/09/16 02:40 Morphine Injection - IVPB 2 mg Q2H PRN Administration PAIN Multivitamins/Minerals/Vitamin C 1 tab 12/06/16 10:00 12/08/16 10:08 Tab-A-Vit - PO 1 tab DAILY NIK Administration Nadolol 20 mg 12/05/16 16:15 12/08/16 10:08 Corgard - PO 20 mg DAILY NIK Administration Nicotine 14 mg 12/06/16 10:00 12/08/16 10:09 Nicoderm Patch - TD Not Given DAILY NIK Pantoprazole Sodium 40 mg 12/06/16 10:00 12/08/16 10:08 Protonix - PO 40 mg DAILY NIK Administration Rifaximin 550 mg 12/05/16 22:00 12/08/16 22:08 Xifaxan - PO 550 mg BID NIK Administration Spironolactone 25 mg 12/06/16 10:00 12/08/16 10:08 Aldactone - PO 25 mg DAILY NIK Administration A/P 56 y/o patient with presumed metastatic cancer ? 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 tumor lyis gentle hydration discussed with family ---very difficult situation with liver dysfunction and severe thrombocytopenia from aggressive small cell lung cancer. poor prognosis overall. would consider palliative care discussed with primary team family considering transfer option . discussed the extent of tumor burden/ complications
[2016-12-09] MEDS: morphine CARPU-JECT 2 MG/1 ML DISP.SYRIN IVPB PRN (02:40)
[2016-12-09 04:12] VITALS: BP 92/48; PULSE 101
[2016-12-09] MEDS ORDERED: DEXTROSE 50%-WATER 50 ML DISP.SYRIN ONE (04:20)
[2016-12-09] MEDS ORDERED: ALPRAZolam 0.25 MG TABLET PO ONE (04:30)
--- NOTE | 2016-12-09 06:47 | HOSP ---
Subjective - Review of Symptoms Events since last encounter: Caled for rapid response Patient was found diaphoretic Was not able to obtain BP become inresponsive shortly after BG was 38 and D50 was pushed stat repeat BG was above 110 code 99 was initiated and CPR started at 4: 27 Patient was emergently intubated by anesthesia 9 epinephrines, 1 amp of bicarb was given Unable to regain pulse Patient was pronounced at 4: 58 Family by the bedside Physical Examination Vital Signs: Vital Signs Temperature 98.0 F 12/08/16 17:00 Pulse Rate 101 H 12/09/16 02:00 Respiratory Rate 24 12/09/16 02:00 Blood Pressure 92/48 12/09/16 02:00 O2 Sat by Pulse Oximetry (%) 95 12/08/16 21:00 Labs: CBC, BMP 12/08/16 18:00 12/08/16 12:05
--- NOTE | 2016-12-10 16:24 | PATH ---
Surgical Pathology Report Patient Name: NADINE WICK [facility]. Rec. #: [id number] /Age/Gender: 1960 (Age: 56) / M Account: [id number] Location: 4 W TELEMETRY U Taken: 12/09/2016 Received: 12/09/2016 Reported: 12/10/2016 Physicians: Sheridan Sharpe M.D. Specimen(s) Received PERIPHERAL BLOOD 2 GREEN TOPS Clinical History Thrombocytopenia, rule out MDS Small cell carcinoma-metastatic Final Diagnosis FLOW CYTOMETRY PERFORMED AND INTERPRETED AT [place], [place] ([id number]) SHOWED THE FOLLOWING: INTERPRETATION: Left shifted granulocytes. The monocytic cells are 11% of total events. There is no evidence of B or T-cell proliferative disorders or increased blasts. Phenotype: In the sample analyzed, there is a mixed population of granulocytes, monocytes and lymphoid cells. CD34+ myeloblasts are 0.1%. Granulocytes are 66% of total cells. Monocytes are 11% of total cells. There is no overt abnormal myeloid antigen expression. The B-cells (3.5% of total) appear polytypic. The T-cells (14% of total) show no tolentino T-cell antigenic deletion. Cytomorphology: Left shifted granulocytes; occasional nucleated red cells. __ Electronically Signed Amanuel Melissa M.D. Addendum Reported: 12/10/2016 Addendum Diagnosis MDS FISH STUDIES PERFORMED AND INTERPRETED AT [place], [place] ([id number]) ARE FOLLOWS: INTERPRETATION: No evidence of deletion 5q or monosomy 5 is present. No evidence of deletion 7q or monosomy 7 is present. No evidence of trisomy8 (+8) is present. No evidence of deletion 13q14 is present. No evidence of a rearrangement of 11q23. No evidence of a deletion of the p53 (17p13) locus. No evidence of deletion 20q12 is present. Comments: The study is negative for many of the most common recurrent genetic abnormalities in Myelodysplastic Syndrome. Correlation with pending cytogenetics ([id number]) is recommended. Amanuel Melissa M.D. Addendum Reported: 12/15/2016 Addendum Diagnosis CYTOGENETIC KARYOTYPE ANALYSIS PERFORMED AND INTERPRETED AT [place], [place] ([id number]) SHOWED THE FOLLOWED: Test Results: 46,XY[20] DIAGNOSTIC INTERPRETATION: Normal male karyotype. No consistent numerical or structural chromosome abnormalities were observed. Amanule Melissa M.D. Gross Description Received are 2 green top tubes of peripheral blood which are sent to [facility]. 12/09/201612/09/2016
== END 2016-12-09 04:00 | disposition expired | DRG 136 ==
LOC: JER 09:06 → JERBED 11:15 → J5S 14:02 → JICU 12-04 16:28 → J4W 12-05 14:33
PROVIDERS: ADMIT Internal Medicine; ATTEND Internal Medicine
PROC: 0FB13ZX Excision of Right Lobe Liver, Percutaneous Approach, Diagnostic (ICD-10-PCS; principal; 2016-12-04)
PROC: 30233R1 Transfusion of Nonautologous Platelets into Peripheral Vein, Percutaneous Approach (ICD-10-PCS; 2016-12-04)
DX: C34.90 Malignant neoplasm of unspecified part of unspecified bronchus or lung (principal); J90 Pleural effusion, not elsewhere classified; F17.210 Nicotine dependence, cigarettes, uncomplicated; C7A.8 Other malignant neuroendocrine tumors; D68.8 Other specified coagulation defects; D69.6 Thrombocytopenia, unspecified; K72.90 Hepatic failure, unspecified without coma; K21.9 Gastro-esophageal reflux disease without esophagitis; R63.4 Abnormal weight loss; Z68.30 Body mass index [BMI] 30.0-30.9, adult; E87.1 Hypo-osmolality and hyponatremia; R18.8 Other ascites; I71.4 Abdominal aortic aneurysm, without rupture; R74.0 Nonspecific elevation of levels of transaminase and lactic acid dehydrogenase [LDH]; R16.2 Hepatomegaly with splenomegaly, not elsewhere classified; R91.8 Other nonspecific abnormal finding of lung field; R00.0 Tachycardia, unspecified; R06.09 Other forms of dyspnea; I24.8 Other forms of acute ischemic heart disease; R04.0 Epistaxis
CPT/HCPCS: 36415; 36430; 36600; 71010-TC; 71260-TC; 74177-TC; 74183-TC; 76705-TC; 76942-TC; 80048; 80053; 80076; 81003; 81015; 82105; 82140; 82248; 82378; 82436; 82550; 82553; 82728; 82803; 82977; 83540; 83550; 83605; 83690; 83735; 83930; 83935; 84100; 84133; 84300; 84443; 84484; 85025; 85027; 85384; 85610; 85730; 86038; 86301; 86704; 86706; 86708; 86850; 86900; 86901; 87040; 87086; 87340; 87899; 88300-TC; 88307-TC; 88341-TC; 93005; 93010; 93970-TC; 94640; 99285-25; A9576; P9034; P9038